=== PATIENT | female | born 1970 | race Caucasian/White ===

== ENCOUNTER → 2017-11-14 11:22 | Outpatient (CLI) | payer BC, SELFPAY ==
[2017-11-14 15:41] LABS: Cholesterol 190 mg/dL (200); Glucose 87 mg/dL (74-106); High Density Lipoprotein 83 mg/dL; Triglycerides 64 mg/dL; Very Low Density Lipoprotein 13 mg/dL (5-40)
== END ==
PROVIDERS: Family Provider Family Medicine; PCP Family Medicine; Visit Provider Family Medicine
DX: E78.5 Hyperlipidemia, unspecified (principal); Z13.1 Encounter for screening for diabetes mellitus
CPT/HCPCS: 36415; 80061; 82947

== ENCOUNTER 2017-12-24 12:13 | Emergency (ER) | payer BC, SELFPAY ==
[2017-12-24 12:14] VITALS: BP 124/80; PULSE 80; RESP 20; TEMP 36.6; O2SAT 100; BMI 22.6
[2017-12-24 12:42] VITALS: BP 120/88; PULSE 67; RESP 15; O2SAT 99
[2017-12-24 13:00] LABS: Bedside Glucose 75 mg/dL (70-110)
[2017-12-24 14:29] VITALS: BP 112/74; PULSE 69; RESP 17; O2SAT 99
--- NOTE | 2017-12-24 14:38 | ED.VISSUMM ---
- ER Visit Summary Date of Service: 12/24/17 Chief Complaint: Palpitations, dizziness and low blood sugar History of Present Illness: The patient is a 47 F who presents because palpitations, dizziness and low blood sugar. She has no significant past medical history. She does have history of anxiety. She denies fever, chills night sweats. She denied double vision, blurred vision or loss of vision. Her definition of lightheadedness is lightheadedness. Worse episode occurred 2 days ago while she was on the commode and passed out. She has had several episodes of near syncopal episodes. Based on her description of nausea, diaphoresis, lightheadedness and tunnel vision suspect these are vasovagal events. She has had several in the past week. She denies black, maroon or bloody stool. She does report nausea without vomiting or diarrhea. She denies any chest pain, palpitations. She does commit up flipping fluttering of her heart. She denies shortness of breath, cough, pleuritic chest pain. She has no history of PE or DVT. She has no risk factors. She denies any abdominal pain or back pain. She denies leg pain, swelling or discoloration. She is not a diabetic. She has not checked her blood sugar when she believes her sugar is low. Physical Examination: Pleasant middle-aged woman in no distress. She does admit to feeling anxious and a history of anxiety her entire life. Vital signs are normal. HEENT exam is unremarkable. Insert cardio pulmonary exam abdomen soft nontender normal bowel sounds. There is no asymmetry, swelling, discoloration, leg vein distention, palpable cords or tenderness along the distribution of the deep venous system. Neuro exam is nonfocal. Test Results: EKG was obtained and reveals a sinus rhythm rate of 70 with normal NE interval, QRS duration, QT interval and axis. Patient was placed on a monitor and there was no ectopy for her 2 hour stay. B GT was obtained and normal, 75 Emergency Department Course and Treatment: Because she complained of low blood sugar her blood sugar was assessed. Because of the palpitations and lightheadedness and EKG was obtained to evaluate for dysrhythmia, findings of preexcitation syndrome etc. And she was placed on a monitor Treatment Plan: Since she is reported several vagal type episodes will refer to cardiology for evaluation for possible table tilt test. Disposition: Discharged home with outpatient cardiology follow-up Impression: 1. Vasovagal syncopal episode 2. Palpitations 3. Anxiety This note was generated with [employer] dictation software. It may contain incorrect words, spelling, and punctuation that were not noted in review of the chart prior to signing ED Disposition - Plan for ED Patient: Disposition: Home or Assisted Living Chief Complaint: Dizziness Instructions: ED Syncope Vasovagal Referrals: Laya Hicks DO [Primary Care Provider] - Frederick Jimenez MD [STAFF PHYSICIAN] - 5-7 Days Additional Instructions: Patient report multiple near syncopal episodes and had a syncopal episode you were referred to Dr. Jimenez for evaluation for possible table tilt test.
[2017-12-24 14:57] VITALS: BP 114/75; PULSE 71; RESP 15; O2SAT 98
== END 2017-12-24 14:58 | disposition home or self-care (01) ==
PROVIDERS: Emergency Provider Emergency Medicine; Family Provider Family Medicine; PCP Family Medicine
DX: R55 Syncope and collapse (principal); R00.2 Palpitations; R42 Dizziness and giddiness; E16.2 Hypoglycemia, unspecified; F41.9 Anxiety disorder, unspecified; Z79.899 Other long term (current) drug therapy
CPT/HCPCS: 82962; 93005; 99283

== ENCOUNTER → 2017-12-27 14:33 | Outpatient (CLI) | payer BC, SELFPAY ==
[2017-12-27 17:23] LABS: Absolute Neutrophil Count 3.7 X10^3/uL (2.0-7.7); Basophil# 0.02 X10^3/uL; Basophil% 0.3 % (0-1); Eosinophil# 0.04 X10^3/uL; Eosinophils% 0.6 % (0-5); Hematocrit 44.8 % (37-47); Hemoglobin 15.1 g/dl (12.0-15.0); Lymphocyte % 33.6 % (19-41); Mean Corp Hgb Conc 33.7 g/gl (32-36); Mean Corpuscular Hgb 30.9 pg (27.0-32.0); Mean Corpuscular Volume 91.6 fL (81-99); Mean Platelet Vol. 9.7 fl (6.2-12.0); Monocyte# 0.37 X10^3/uL; Monocyte% 5.9 % (0-10); Neutrophil # 3.72 X10^3/uL (2.7-7.7); Neutrophil % 59.6 % (47-70); Platelet Count 304 K/mm3 (150-450); RBC Distribution Width CV 13.7 % (11.6-14.6); RBC Distribution Width SD 45.7 fl (35.1-43.9); Red Blood Count 4.89 M/mm3 (4.2-5.4); White Blood Count 6.3 K/mm3 (4.4-11.0)
[2017-12-27 17:28] LABS: POSITIVE COUNT NO; POSITIVE DIFFERENTIAL NO; POSITIVE MORPHOLOGY NO
[2017-12-27 17:45] LABS: Anion Gap 9 (5-15); BUN 6 mg/dL (7-18); Calcium,Total 8.9 mg/dL (8.5-10.1); Chloride 106 mmol/L (98-107); Creatinine, Serum 0.66 mg/dL (0.55-1.02); EST Glomerular Filtration Rate 101 mL/min (>60); Est Glom Filt Rate - Afr Amer 123 mL/min (>60); Glucose 75 mg/dL (74-106); Potassium 4.1 mmol/L (3.5-5.1); Sodium Level 143 mmol/L (136-145); Thyroid Stim Hormone (TSH) 0.69 uIU/mL (0.358-3.74)
== END ==
PROVIDERS: Family Provider Family Medicine; PCP Family Medicine; Visit Provider Internal Medicine Cardiovascular Disease
DX: R55 Syncope and collapse (principal)
CPT/HCPCS: 36415; 80048; 84443; 85025

== ENCOUNTER 2017-12-29 07:48 | Emergency (ER) | payer BC, SELFPAY ==
[2017-12-29 07:50] VITALS: BP 150/91; PULSE 96; RESP 16; TEMP 36.4; O2SAT 100; BMI 22.8
--- NOTE | 2017-12-29 08:36 | ED.VISSUMM ---
- ER Visit Summary Date of Service: 12/29/17 Chief Complaint: [] Feeling hot all over abdominal burning History of Present Illness: The patient is a 47 F [] patient has history of anxiety otherwise she denies a past history she reports she has had intermittent episodes of a sense that she feels hot all over sometimes her abdomen seems to be burning from inside as if there is firing her stomach. She did not have any type of syncope, and she has no cardiopulmonary complaints of any kind other than report she feels hot all over, and she has had this sensation in the past, this occurred this morning she presents for evaluation. She was seen recently emergency department for which she describes as palpitations low blood sugar and vasovagal symptoms, ED evaluation was unremarkable she can follow-up Dr. Jimenez a few days ago cardiology the workup in that office was also unremarkable she was instructed to follow-up with a cardiac echo she does report she had blood test done does not know the results. She has had no vomiting no fever no cough she has no past history specifically she has a history of CO PE DVT hypertension or diabetes takes no medications on daily basis except for Xanax for anxiety she makes she feels her anxiety is well controlled she is able to eat and drink her bowel bladder habits are normal she has no history of hepatobiliary dysfunction ulcer disease she has had no fevers no dysuria no cough no URI symptoms, she has no history of thyroid disorder Physical Examination: [] She is resting comforting the bed her vital signs are all within normal range she is in no distress HEENT exam was negative lungs are clear heart tones are normal the abdomen soft nontender she takes her hand draws a large [place] around the entire abdominal cavity complains that she feels is this area is on fire but the exam is completely unremarkable the backs unremarkable upper lower extremities unremarkable neurologically is awake moving all 4 there is no sinus clubbing or edema she has no signs of psychomotor agitation delirium or delusion her temperature is normal in the sense that she feels hot is improved Test Results: [] Emergency Department Course and Treatment: [] I did explain to her we could undergo ED evaluation with labs EKG etc. she declined all that since she just had that she just wanted me to check the labs that were done THIS week those labs were reviewed were unremarkable, I did not wish to have any other testing done she wants some relief so she was given GI cocktail she will be given a prescription for antacid type occasion like Prilosec, bland diet and otherwise she will miss her family doctor, Dr. Jimenez her other physicians for further management all the above, she agrees with this plan Treatment Plan: [] Disposition: [] Home stable Impression: [] Sense of feeling hot all over, reported sense of abdominal burning This note was generated with [employer] dictation software. It may contain incorrect words, spelling, and punctuation that were not noted in review of the chart prior to signing ED Disposition - Plan for ED Patient: Chief Complaint: Syncope Instructions: ED Abdominal Pain Unkn Cause, ED Palpitations, ED Near Syncope Unkn Prescriptions: Omeprazole [Prilosec] 20 mg PO DAILY #30 cap Referrals: Laya Hicks DO [Primary Care Provider] -
--- NOTE | 2017-12-29 08:40 | ED.DCSUM_ITS ---
- ER Visit Summary Date of Service: 12/29/17 Chief Complaint: [] Feeling hot all over abdominal burning History of Present Illness: The patient is a 47 F [] patient has history of anxiety otherwise she denies a past history she reports she has had intermittent episodes of a sense that she feels hot all over sometimes her abdomen seems to be burning from inside as if there is firing her stomach. She did not have any type of syncope, and she has no cardiopulmonary complaints of any kind other than report she feels hot all over, and she has had this sensation in the past, this occurred this morning she presents for evaluation. She was seen recently emergency department for which she describes as palpitations low blood sugar and vasovagal symptoms, ED evaluation was unremarkable she can follow-up Dr. Jimenez a few days ago cardiology the workup in that office was also unremarkable she was instructed to follow-up with a cardiac echo she does report she had blood test done does not know the results. She has had no vomiting no fever no cough she has no past history specifically she has a history of ID PE DVT hypertension or diabetes takes no medications on daily basis except for Xanax for anxiety she makes she feels her anxiety is well controlled she is able to eat and drink her bowel bladder habits are normal she has no history of hepatobiliary dysfunction ulcer disease she has had no fevers no dysuria no cough no URI symptoms, she has no history of thyroid disorder Physical Examination: [] She is resting comforting the bed her vital signs are all within normal range she is in no distress HEENT exam was negative lungs are clear heart tones are normal the abdomen soft nontender she takes her hand draws a large redding around the entire abdominal cavity complains that she feels is this area is on fire but the exam is completely unremarkable the backs unremarkable upper lower extremities unremarkable neurologically is awake moving all 4 there is no sinus clubbing or edema she has no signs of psychomotor agitation delirium or delusion her temperature is normal in the sense that she feels hot is improved Test Results: [] Emergency Department Course and Treatment: [] I did explain to her we could undergo ED evaluation with labs EKG etc. she declined all that since she just had that she just wanted me to check the labs that were done THIS week those labs were reviewed were unremarkable, I did not wish to have any other testing done she wants some relief so she was given GI cocktail she will be given a prescription for antacid type occasion like Prilosec, bland diet and otherwise she will miss her family doctor, Dr. Jimenez her other physicians for further management all the above, she agrees with this plan Treatment Plan: [] Disposition: [] Home stable Impression: [] Sense of feeling hot all over, reported sense of abdominal burning This note was generated with [employer] dictation software. It may contain incorrect words, spelling, and punctuation that were not noted in review of the chart prior to signing ED Disposition - Plan for ED Patient: Chief Complaint: Syncope Instructions: ED Abdominal Pain Unkn Cause, ED Palpitations, ED Near Syncope Unkn Prescriptions: Omeprazole [Prilosec] 20 mg PO DAILY #30 cap Referrals: Laya Hicks DO [Primary Care Provider] -
--- NOTE | 2017-12-29 08:40 | ED.DEP ---
ED Disposition - Plan for ED Patient: Chief Complaint: Syncope Instructions: ED Palpitations, ED Near Syncope Unkn, ED Abdominal Pain Unkn Cause Prescriptions: Omeprazole [Prilosec] 20 mg PO DAILY #30 cap Referrals: Laya Hicks DO [Primary Care Provider] -
--- NOTE | 2017-12-29 08:42 | ED.DEP ---
ED Disposition - Plan for ED Patient: Chief Complaint: Syncope Instructions: ED Abdominal Pain Unkn Cause, ED Palpitations, ED Near Syncope Unkn Prescriptions: Omeprazole [Prilosec] 20 mg PO DAILY #30 cap Referrals: Laya Hicks DO [Primary Care Provider] -
[2017-12-29] MEDS: Mag Hydrox/Al Hydrox/Simeth 30 ML UDC PO (08:53)
== END 2017-12-29 09:04 | disposition home or self-care (01) ==
LOC: ED 08:48
PROVIDERS: Emergency Provider Emergency Medicine; Family Provider Family Medicine; PCP Family Medicine
DX: R20.8 Other disturbances of skin sensation (principal); R68.89 Other general symptoms and signs; F41.9 Anxiety disorder, unspecified; Z79.899 Other long term (current) drug therapy
CPT/HCPCS: 99283

== ENCOUNTER → 2018-01-02 13:51 | Outpatient (CLI) | payer BC, SELFPAY | PROVIDERS: Family Provider Family Medicine; PCP Family Medicine; Visit Provider Internal Medicine Cardiovascular Disease | DX: R55 Syncope and collapse (principal) | CPT/HCPCS: 93306 ==

== ENCOUNTER → 2018-01-17 10:44 | Outpatient (CLI) | payer BC, SELFPAY | PROVIDERS: Family Provider Family Medicine; PCP Family Medicine; Visit Provider Family Medicine | DX: R10.11 Right upper quadrant pain (principal) | CPT/HCPCS: 76705 ==

== ENCOUNTER 2018-03-24 09:06 | Day surgery (SDC) | payer BC, SELFPAY ==
--- NOTE | 2018-03-24 | COLBX_PTH ---
PATIENT: RACHELL ABAD LOC: EN U#:[id number] AGE/SX: 47/F ROOM: RE03/24/[address]: Dr. Mat Tam MD : 1970 BED: DIS: 03/24/2018 SPEC #: [id number] RECD: 03/24/18 13:51 STATUS: KSENIA KANDI #: [id number] ZAC: 03/24/18 00:[address]: Mat Tam DEPT: SURGICAL PATHOLOGY RECD BY: Roddy Roman ENTERED: 03/24/18 13:52 SP TYPE: COLON BX OTHR DR: Dr. Laya Hicks DO Tissues: A - Duodenum, NOS B - Gastric mucous membrane C - Gastric mucous membrane D - Esophageal mucous membrane Procedures: Surgery Specimen Level IV HEADER OPERATION: EGD ([facility]) PRE-OP DIAGNOSIS: Nausea, epigastric burning, burping TISSUE SUBMITTED: A - Duodenal biopsy, B - Antral biopsy for H. pylori and pathology, C - GE junction biopsy, D - Mid esophageal biopsy MICROSCOPIC DIAGNOSIS A. Duodenum, biopsy: No pathologic change. B. Gastric antrum, biopsy: Mild chronic gastritis. C. Gastroesophageal junction, biopsy: Junctional mucosa with mild chronic inflammation. D. Mid esophagus, biopsy. Fragments of benign squamous mucosa. AM:tye 03/27/18 COMMENT The results of immunohistochemistry for Helicobacter pylori will be reported separately ([id number]). MICROSCOPIC DESCRIPTION Slides are reviewed. GROSS DESCRIPTION A. Received is one container labeled with the patient name and designated duodenal biopsy. The specimen consists of two irregular fragments of light stallings soft tissue that measure 0.4 x 0.2 x 0.1 cm. The specimen is totally submitted in one cassette. B. Received is one container labeled with the patient name and designated antral biopsy. The specimen consists of one irregular fragment of light stalilngs soft tissue that measures 0.3 x 0.3 x 0.1 cm. The specimen is totally submitted in one cassette. C. Received is one container labeled with the patient name and designated GE junction biopsy. The specimen consists of multiple irregular fragments of light stallings soft tissue that in aggregate measure 0.6 x 0.3 x 0.1 cm. The specimen is totally submitted in one cassette. D. Received is one container labeled with the patient name and designated mid esophageal biopsy. The specimen consists of two irregular fragments of light stalligns soft tissue that in aggregate measure 0.6 x 0.3 x 01 cm. The specimen is totally submitted in one cassette. / LINDA:tye 03/24/18 TC: 3 CPT: 60499 x4
--- NOTE | 2018-03-24 | IMM_PTH ---
PATIENT: RACHELL ABAD LOC: EN U#:[id number] AGE/SX: 47/F ROOM: RE03/24/[address]: Dr. Mat Tam MD : 1970 BED: DIS: 03/24/2018 SPEC #: [id number] RECD: 03/27/18 11:59 STATUS: KSENIA KANDI #: [id number] ZAC: 03/24/18 00:[address]: Mat Tam DEPT: IMMUNOHISTOCHEMISTRY RECD BY: Marissa Garza ENTERED: 03/27/18 12:00 SP TYPE: IMMUNO OTHR DR: Dr. Laya Hicks, DO Tissues: Gastric mucous membrane Procedures: H Pylori (initial) PHYSICIAN & INSTITUTION [place] [id number] SPECIMEN INFORMATION: Tissue Source: Antral biopsy Clinical Info: Nausea, epigastric burning, burping Specimen Number: [id number] CPT code: 47565 METHODOLOGY: Deparaffinized sections of prefer/formalin-fixed tissue or PAP/DQ stained slides are incubated with monoclonal/polyclonal antibodies/oligonucleotide probes. Localization is made via biotin free immunoperoxidase method. Appropriate controls are performed and reacted as expected. Results on target cell population are indicated in the following table: RESULTS: ANTIBODY / CLONE RESULT H Pylori (polyclonal) negative These tests were developed and their performance characteristics determined by [facility]. They may not have been cleared or approved by the U.S. Food and Drug Administration. The FDA has determined that such clearance or approval is not necessary. INTERPRETATION: Antral biopsy; Negative for Helicobacter pylori. AM:da 03/28/18
[2018-03-24 09:44] VITALS: BP 111/74; PULSE 89; RESP 14; TEMP 36.4; O2SAT 100; BMI 21.6
[2018-03-24 10:40] VITALS: BP 101/64; BP 111/74; PULSE 93; RESP 15; TEMP 36.6; O2SAT 96
--- NOTE | 2018-03-24 10:43 | OP.ENDO_ITS ---
Patient Name: Ramandeep Pérez Procedure Date: 03/24/2018 10:21 AM Date of : 1970 Age: 47 Procedure: Upper GI endoscopy Indications: Epigastric abdominal pain Providers: Mat Tam MD Referring MD: Mat Tam MD Medicines: See the Anesthesia note for documentation of the administered medications Complications: No immediate complications. Procedure: Pre-Anesthesia Assessment: - Prior to the procedure, a History and Physical was performed, and patient medications and allergies were reviewed. The patient's tolerance of previous anesthesia was also reviewed. The risks and benefits of the procedure and the sedation options and risks were discussed with the patient. All questions were answered, and informed consent was obtained. Prior Anticoagulants: The patient has taken no previous anticoagulant or antiplatelet agents. ASA Grade Assessment: II - A patient with mild systemic disease. After reviewing the risks and benefits, the patient was deemed in satisfactory condition to undergo the procedure. After obtaining informed consent, the endoscope was passed under direct vision. Throughout the procedure, the patient's blood pressure, pulse, and oxygen saturations were monitored continuously. The gastroscope was introduced through the mouth, and advanced to the second part of duodenum. The upper GI endoscopy was accomplished without difficulty. The patient tolerated the procedure well. Scope In: 10:29:06 AM Scope Out: 10:34:21 AM Total Procedure Duration Time 0 hours 5 minutes 15 seconds Findings: LA Grade A (one or more mucosal breaks less than 5 mm, not extending between tops of 2 mucosal folds) esophagitis was found 38 cm from the incisors. Biopsies were taken with a cold forceps for histology. A small hiatal hernia was present. Diffuse mildly erythematous mucosa without bleeding was found in the gastric antrum. Biopsies were taken with a cold forceps for histology. The examined duodenum was normal. Biopsies were taken with a cold forceps for histology. Impression: - LA Grade A reflux esophagitis. Biopsied. - Small hiatal hernia. Mid esophageal biopsies obtained to assess for eosinophyllic esophagitis - Erythematous mucosa in the antrum. Biopsied. - Normal examined duodenum. Biopsied. Recommendation: - Discharge patient to home. - Resume previous diet. - Continue present medications. Procedure Code(s): --- Professional --- 79173, Esophagogastroduodenoscopy, flexible, transoral; with biopsy, single or multiple Diagnosis Code(s): --- Professional --- K21.0, Gastro-esophageal reflux disease with esophagitis K44.9, Diaphragmatic hernia without obstruction or gangrene K31.89, Other diseases of stomach and duodenum R10.13, Epigastric pain CPT copyright 2017 [employer]. All rights reserved. The codes documented in this report are preliminary and upon energy attorney review may be revised to meet current compliance requirements. Mat Tam MD 03/24/2018 10:42:31 AM This report has been signed electronically. Number of Addenda: 0 Note Initiated On: 03/24/2018 10:21 AM
[2018-03-24 10:45] VITALS: BP 111/74; BP 99/67; PULSE 88; RESP 16; O2SAT 100
[2018-03-24 10:50] VITALS: BP 102/73; BP 111/74; PULSE 88; O2SAT 99
[2018-03-24 10:55] VITALS: BP 106/69; BP 111/74; PULSE 77; RESP 16; TEMP 36.6; O2SAT 100
== END 2018-03-24 11:19 | disposition home or self-care (01) ==
LOC: EN 09:07 → AC 09:32
PROVIDERS: Family Provider Family Medicine; PCP Family Medicine; Referring Provider Surgery; Visit Provider Surgery
PROC: 0DJ08ZZ Inspection of Upper Intestinal Tract, Via Natural or Artificial Opening Endoscopic (ICD-10-PCS; CPT 43235; principal; 2018-03-24 09:55)
DX: K21.0 Gastro-esophageal reflux disease with esophagitis (principal); K44.9 Diaphragmatic hernia without obstruction or gangrene; K29.50 Unspecified chronic gastritis without bleeding; R55 Syncope and collapse; E78.00 Pure hypercholesterolemia, unspecified; M54.9 Dorsalgia, unspecified; G89.29 Other chronic pain; G43.909 Migraine, unspecified, not intractable, without status migrainosus; F41.9 Anxiety disorder, unspecified; Z79.899 Other long term (current) drug therapy; Z87.891 Personal history of nicotine dependence
CPT/HCPCS: 43239; 88305; 88342; J7120

== ENCOUNTER → 2019-10-31 12:46 | Outpatient (CLI) | payer BC, SELFPAY ==
--- NOTE | 2019-10-31 12:50 | BI_ITS ---
MAMMOGRAPHY - BILATERAL SCREENING REASON FOR EXAM: Female, 49 years old. Routine annual screening examination. PERTINENT HISTORY: Non-contributory. Prior left stereotactic breast biopsy. TECHNIQUE: Digital bilateral breast grady (3D mammographic acquisition) in the CC and MLO projections. 2-D mediolateral oblique (MLO) and craniocaudad (CC) views of both breasts were obtained. CAD: Full Field Digital Mammography with Computer Added Detection was performed. COMPARISON: Comparison is made with prior EXAMINATION dated July 14, 2015. FINDINGS: Breast Composition: The breasts are heterogeneously dense, which may obscure small masses. There are no dominant masses or suspicious calcifications. A tissue clip marker is seen in the upper slightly lateral aspect of the left breast from prior biopsy. No other significant abnormalities are identified. There has been no significant change since the prior study. BI/SCREEN MAMM (CAD) W/GRADY BILAT IMPRESSION: Stable bilateral screening mammogram. Yearly follow-up mammogram recommended. (A) ASSESSMENT CATEGORY: BIRADS Category 2: Benign. A letter regarding these results will be sent to the patient by the facility within 30 days. Approximately 10% of breast cancers are not detected by mammography. A normal mammogram should not delay biopsy of a clinically suspicious abnormality. [id number] Electronically Signed: Sam Mcdonald, at 9:45 EDT , Service support ,
== END ==
PROVIDERS: PCP Family Medicine; Referring Provider Family Medicine; Visit Provider Family Medicine
DX: Z12.31 Encounter for screening mammogram for malignant neoplasm of breast (principal)
CPT/HCPCS: 77063; 77067

== ENCOUNTER → 2020-03-17 17:41 | Outpatient (CLI) | payer BC, SELFPAY ==
--- NOTE | 2020-03-17 17:46 | CT_ITS ---
STUDY: CT ABDOMEN AND PELVIS WITH CONTRAST REASON FOR EXAM: Female, 49 years old. ABD PAIN,PULSATILE MASS OVER AORTA RADIATION DOSAGE (If Supplied By Facility): CTDIvol = ( 13.25 ) mGy, DLP = ( 627.72 ) mGycm TECHNIQUE: Transaxial images were obtained from the dome of the diaphragm to the symphysis pubis with oral contrast. Oral and amp; IV Readi-CAT and amp; 100mL Isovue-300 was administered. Sagittal and coronal images were reconstructed. Individualized dose optimization techniques were used for this CT. COMPARISON: None. FINDINGS: 26.6 mm pleural-based nodule in the left lower lobe laterally. This most likely represents focal area of scarring. The visualized portions of the heart are within normal limits. Normal liver. Normal gallbladder and extrahepatic biliary system. Normal spleen. Normal pancreas. Normal bilateral adrenal glands. Normal right kidney. Normal left kidney. Normal visualized stomach. Normal small intestine. Normal colon. There is non-visualization of the appendix. Normal abdominal aorta. Normal inferior vena cava. Normal retroperitoneum. Normal urinary bladder. Follicles are seen in both ovaries. A dominant follicle is seen in the left ovary measuring 2.1 cm. The patient is status post hysterectomy. Normal abdominal wall. There are diffuse degenerative changes of the visualized lumbar spine. Levoscoliosis. Status post appendectomy and kristopher fixation of the lumbar spine. CT/Abdomen/Pelvis WITH Contrast IMPRESSION: Status post hysterectomy. Bilateral ovarian follicles. Prior lumbar surgery with persistent degenerative changes as well as levoscoliosis. Electronically Signed: Sam Mcdonald, at 10:25 EST , Service support ,
== END ==
PROVIDERS: PCP Family Medicine; Visit Provider Family Medicine
DX: R10.9 Unspecified abdominal pain (principal)
CPT/HCPCS: 74177; Q9967

== ENCOUNTER 2020-11-21 09:20 | Emergency (ER) | payer BC, SELFPAY ==
[2020-11-21 09:22] VITALS: BP 122/77; PULSE 86; RESP 16; TEMP 36; O2SAT 93; BMI 22.2
--- NOTE | 2020-11-21 09:29 | EKG12_ITS ---
Test Reason : SOB Blood Pressure : / mmHG Vent. Rate : 079 BPM Atrial Rate : 079 BPM P-R Int : 162 ms QRS Dur : 074 ms QT Int : 368 ms P-R-T Axes : 036 024 058 degrees QTc Int : 421 ms Normal sinus rhythm Normal ECG Confirmed by KARIE RODRIGUEZ MD ([id number]), managing editor RODRIGUEZ PATEL ([id number]) on 11/24/2020 1:12:28 PM Referred By: CRISTY Confirmed By:KARIE RODRIGUEZ MD
--- NOTE | 2020-11-21 09:37 | EDS_ITS ---
HPI History of Present Illness Chief Complaint: Palpitations Narrative Narrative: 50-year-old female presenting with multiple complaints. The first of which is nasal congestion and a slight cough that she is had for a week and a half. She was tested for Covid and was negative. She has not had a fever, chills, body aches, change in taste or smell. She states that she does have seasonal allergies but does not take anything because nothing works. Secondly the patient complains of palpitations she states that these come and go. She states that she has had palpitations for most of her adult life. I asked her what was different about them today that got her here and she stated that she feels like sometimes she feels like she is going to pass out. She denies any chest pain or dyspnea. Patient also states that her hands and feet feel cold. Patient is also complaining that she has some dyspepsia which is a chronic issue for her and she has been taking her omeprazole and it does not seem to be working. She is a small area of pain in the left lower quadrant and she states that she has had some constipation and some diarrhea recently. She denies black or bloody stools. [facility] Medical History Acid reflux Anxiety Back problem Dizziness Epigastric pain Nausea Palpitations Vasovagal syncope Home Medications alprazolam 0.5 mg PO BID PRN PRN 09/25/15 [History Last Taken Unknown] oxycodone-acetaminophen 1 ea PO Q6H PRN PRN #30 tab 10/02/15 [Rx Last Taken Unknown] omeprazole 20 mg PO DAILY #30 cap 12/29/17 [Rx Last Taken Unknown] clindamycin phosphate 1 % topical foam 1 applic TOPICAL QHS 02/24/18 [History Last Taken Unknown] sumatriptan succinate 50 mg tablet 50 mg PO .X1 PRN 02/24/18 [History Last Taken Unknown] Allergy/AdvReac Type Severity Reaction Status Date / Time acetaminophen [From Fioricet] AdvReac Nausea Verified 11/21/20 09:21 butalbital [From Fioricet] AdvReac Nausea Verified 11/21/20 09:21 caffeine [From Fioricet] AdvReac Nausea Verified 11/21/20 09:21 bactrim Allergy nauseated Uncoded 11/21/20 09:21 Family History Father Arthritis Diabetes Heart disease Hypertension Kidney disease High cholesterol Mother Diabetes Brother Hypertension High cholesterol Uncle CVA (cerebral vascular accident) Grandmother CVA (cerebral vascular accident) Surgical History History of bilateral salpingectomy History of hysterectomy history ORIF left hip Social History Smoking Status: Never smoker alcohol intake: never substance use type: does not use ROS ROS ED Constitutional Constitutional ED: Denies chills, fever(s), sweats or weight loss Eyes Eyes: Denies blurry vision or diplopia ENT ENT ED: Reports rhinorrhea; Denies sore throat Cardiovascular Cardiovascular: Reports palpitations; Denies chest pain Respiratory/Chest Respiratory/Chest: Reports cough; Denies dyspnea or dyspnea on exertion Gastrointestinal Gastrointestinal: Reports abdominal pain, constipation, diarrhea and other Details: Dyspepsia ; Denies vomiting Genitourinary Genitourinary ED: Denies dysuria or hematuria Musculoskeletal Musculoskeletal: Reports other Details: Cold hands and feet ; Denies myalgias Integumentary Denies abscess or rash Neurologic Neurologic: Denies headache(s) or paresthesias EXAM Physical Exam Const Vital Signs: 11/21/20 09:22 11/21/20 09:31 11/21/20 09:41 Temperature 96.8 F L Temperature Source Temporal Pulse Rate 86 Pulse Rate [Lying] Pulse Rate [Sitting] Pulse Rate [Standing] Respiratory Rate 16 Respiratory Effort Normal Non-Labored Respiratory Pattern Normal Blood Pressure 122/77 H Blood Pressure [Lying] Blood Pressure [Sitting] Blood Pressure [Standing] Blood Pressure Mean 92 Blood Pressure Mean [Lying] Blood Pressure Mean [Sitting] Blood Pressure Mean [Standing] Pulse Ox 93 Oxygen Delivery Method Room Air Room Air 11/21/20 10:04 11/21/20 11:34 Temperature Temperature Source Pulse Rate 74 Pulse Rate [Lying] 75 Pulse Rate [Sitting] 83 Pulse Rate [Standing] 94 Respiratory Rate 16 Respiratory Effort Respiratory Pattern Blood Pressure 118/95 H Blood Pressure [Lying] 116/86 H Blood Pressure [Sitting] 133/87 H Blood Pressure [Standing] 121/92 H Blood Pressure Mean Blood Pressure Mean [Lying] 96 Blood Pressure Mean [Sitting] 102 Blood Pressure Mean [Standing] 101 Pulse Ox 98 Oxygen Delivery Method Positive well nourished General Appearance ED: NAD; Negative for cyanotic or diaphoretic HEENT Reports moist mucous membranes Negative for trauma Eyes PERRL and EOMs intact bilaterally General Eye ED: Negative for pale conjunctiva or scleral icterus Neck no lymphadenopathy and supple Resp normal respiratory effort and clear to auscultation bilaterally Cardio regular rate, regular rhythm and no murmurs GI normal to inspection, nondistended, normoactive bowel sounds GI Narrative: No reproducible abdominal pain Extremity normal to inspection Extremity Narrative: Radial pulses and pedal pulses are 2+ and symmetric bilaterally General Extremety ED: Negative for edema General Extremity: Negative for edema Neuro oriented x3 and CN's II-XII intact bilaterally Sensorium / Orientation: alert Psych mental status grossly normal Skin no rashes or lesions noted and no wounds MDM MDM MDM Narrative Medical decision making narrative: Patient presenting today with multiple complaints including palpitations, some dyspnea, cold hands and feet, mild crampy pain in her abdomen. She had an EKG performed on arrival which is sinus rhythm at 79 bpm and my interpretation there is no ST elevation or depression no dysrhythmia. One-view portable chest x-ray interpreted by myself shows no acute cardiopulmonary process. Troponin is less than 3 and effectively rules out ACS and she is not having any chest pain. Patient is PERC negative. Lab work otherwise is unremarkable. TSH is normal. I do not believe the patient needs any further imaging as I cannot reproduce any abdominal pain on exam and her lab work is normal. Patient counseled on finding and comfortable being discharged home. She'll follow-up outpatient with her PCP. Impression: 1. Palpitations 2. Crampy abdominal pain 3. Dyspnea Lab Data Attestation: I reviewed the patient's lab results. Labs: Laboratory Results - last 24 hr 11/21/20 11/21/20 09:36 09:36 WBC 6.3 RBC 5.12 Hgb 15.3 H Hct 45.7 MCV 89.3 MCH 29.9 MCHC 33.5 RDW Std Deviation 41.2 RDW Coeff of Gabriel 12.5 Plt Count 352 MPV 8.7 Immature Gran % (Auto) 0.200 Neut % (Auto) 69.3 Lymph % (Auto) 22.0 [place] % (Auto) 7.1 Eos % (Auto) 0.8 Baso % (Auto) 0.6 Absolute Neuts (auto) 4.4 Absolute Lymphs (auto) 1.39 Nucleated RBC % 0 Sodium 138 Potassium 4.0 Chloride 103 Carbon Dioxide 26.0 Anion Gap 9 BUN 14 Creatinine 0.95 Estim Creat Clear Calc 68.89 Est GFR (MDRD) Af Amer 80 Est GFR (MDRD) Non-Af 66 BUN/Creatinine Ratio 14.7 Glucose 101 Calcium 9.3 Total Bilirubin 0.30 Direct Bilirubin 0.13 AST 12 L ALT 19 Alkaline Phosphatase 88 Troponin I High Sens < 3.0 L Total Protein 7.7 Albumin 4.3 Globulin 3.4 Lipase 241 TSH 0.78 Radiography Diagnostic Testing: Radiology Impression Chest X-Ray 11/21/20 09:45 IMPRESSION: The lungs are clear. Dextroscoliosis. Electronically Signed: Sam Mcdonald MD at 10:17 EDT , Service support , Discharge Plan Triage Chief Complaint: Palpitations ED Provider: Leo Silva Dx/Rx/DC Orders Instructions: ED Abdominal Pain Unkn Cause Fem, ED Palpitations, ED Allergic Rhinitis Prescriptions: No Action clindamycin phosphate 1 % foam 1 applic TOPICAL QHS RF: 0 alprazolam 0.5 MG tablet 0.5 mg PO BID PRN PRN (Reason: Anxiety) RF: 0 oxycodone-acetaminophen 1 EACH tablet 1 ea PO Q6H PRN PRN (Reason: Pain) Qty: 30 RF: 0 sumatriptan succinate 50 mg tablet 50 mg PO .X1 PRN RF: 0 omeprazole 20 MG capsule 20 mg PO DAILY Qty: 30 RF: 0 Primary Care Provider: Laya Hicks Referrals: Laya Hicks DO [Primary Care Provider] - Disposition Disposition: Home, Self Care Discharge Date/Time: 11/21/20 11:35
--- NOTE | 2020-11-21 09:45 | RAD_ITS ---
STUDY: X-RAY CHEST REASON FOR EXAM: Female, 50 years old. Palpitation TECHNIQUE: Single AP portable view of the chest. COMPARISON: None. FINDINGS: EKG electrodes are seen. The lungs are clear and expanded. There is no demonstrated pleural abnormality. Normal size heart. Normal mediastinum and jaya. Normal visualized pulmonary arteries. Normal visualized aortic arch and descending thoracic aorta. Dextroscoliosis. CARABALLO kristopher fixation of the mid thoracic spine and upper lumbar spine. Normal visualized ribs, clavicles, and shoulders. There is no demonstrated abnormality of the visualized soft tissue structures of the upper abdomen. RAD/Chest 1 View (Portable) IMPRESSION: The lungs are clear. Dextroscoliosis. Electronically Signed: Sam Mcdonald MD at 10:17 EDT , Service support ,
[2020-11-21 09:50] LABS: Absolute Lymphocyte Count 1.39 X10^3/uL (0.83-4.51); Absolute Neutrophil Count 4.4 X10^3/uL (2.0-7.7); Basophil# 0.04 X10^3/uL; Basophil% 0.6 % (0-1); Eosinophil# 0.05 X10^3/uL; Eosinophils% 0.8 % (0-5); Hematocrit 45.7 % (37-47); Hemoglobin 15.3 g/dL (12.0-15.0); Lymphocyte # 1.39 X10^3/ul (0.83-4.51); Mean Corp Hgb Conc 33.5 g/dL (32-36); Mean Corpuscular Hgb 29.9 pg (27.0-32.0); Mean Corpuscular Volume 89.3 fL (81-99); Mean Platelet Vol. 8.7 fl (6.2-12.0); Monocyte# 0.45 X10^3/uL; Monocyte% 7.1 % (0-10); NRBC Flagged by Analyzer 0 % (0-5); Neutrophil # 4.39 X10^3/uL (2.7-7.7); Neutrophil % 69.3 % (47-70); Platelet Count 352 K/mm3 (150-450); RBC Distribution Width CV 12.5 % (11.6-14.6); RBC Distribution Width SD 41.2 fl (35.1-43.9); Red Blood Count 5.12 M/mm3 (4.2-5.4); White Blood Count 6.3 K/mm3 (4.4-11.0)
[2020-11-21 10:04] VITALS: BP 116/86; BP 121/92; BP 133/87; PULSE 75; PULSE 83; PULSE 94
[2020-11-21 10:17] LABS: AST(SGOT) 12 U/L (15-37); Alanine Aminotransfer ALT/SGPT 19 U/L (13-56); Albumin, Serum 4.3 g/dL (3.2-5.0); Alkaline Phosphatase 88 U/L (45-117); Anion Gap 9 (5-15); BUN 14 mg/dL (7-18); BUN/Creat Ratio 14.7 RATIO (10-20); Bilirubin, Direct 0.13 mg/dL (0.00-0.30); Calcium,Total 9.3 mg/dL (8.5-10.1); Chloride 103 mmol/L (98-107); Creatinine, Serum 0.95 mg/dL (0.55-1.02); EST Glomerular Filtration Rate 66 mL/min (>60); Est Glom Filt Rate - Afr Amer 80 mL/min (>60); Estimated Creatinine Clearance 68.89 ml/min; Globulin 3.4 g/dL (2.2-4.2); Glucose 101 mg/dL (74-106); Lipase 241 U/L (73-393); Protein, Total 7.7 g/dL (6.4-8.2); Sodium Level 138 mmol/L (136-145); Thyroid Stim Hormone (TSH) 0.78 uIU/mL (0.358-3.74); Troponin-I HS < 3.0 pg/mL (3.0-53.7)
[2020-11-21 11:34] VITALS: BP 118/95; PULSE 74; RESP 16; O2SAT 98
== END 2020-11-21 11:35 | disposition home or self-care (01) ==
PROVIDERS: Emergency Provider Student in an Organized Health Care Education/Training Program; PCP Family Medicine
DX: R00.2 Palpitations (principal); R10.32 Left lower quadrant pain; R06.00 Dyspnea, unspecified; R05 Cough; R09.81 Nasal congestion; K21.9 Gastro-esophageal reflux disease without esophagitis; F41.9 Anxiety disorder, unspecified; Z79.899 Other long term (current) drug therapy
CPT/HCPCS: 71045; 80048; 80076; 83690; 84443; 84484; 85025; 93005; 99285; A4216

== ENCOUNTER → 2020-11-26 09:52 | Outpatient (CLI) | payer BC, SELFPAY ==
[2020-11-24 08:08] VITALS: BMI 22.2
[2020-11-26 10:54] LABS: Insulin 5.4 mU/L (2.6-37.6)
[2020-11-26 11:02] LABS: ALB/GLOB Ratio 1.3 RATIO (0.9-2.4); AST(SGOT) 17 U/L (15-37); Alanine Aminotransfer ALT/SGPT 20 U/L (13-56); Albumin, Serum 4.2 g/dL (3.2-5.0); Alkaline Phosphatase 80 U/L (45-117); Anion Gap 4 (5-15); BUN 11 mg/dL (7-18); BUN/Creat Ratio 14.7 RATIO (10-20); Calcium,Total 8.6 mg/dL (8.5-10.1); Chloride 104 mmol/L (98-107); Creatinine, Serum 0.75 mg/dL (0.55-1.02); EST Glomerular Filtration Rate 87 mL/min (>60); Est Glom Filt Rate - Afr Amer 106 mL/min (>60); Globulin 3.3 g/dL (2.2-4.2); Glucose 84 mg/dL (74-106); Potassium 4.1 mmol/L (3.5-5.1); Protein, Total 7.5 g/dL (6.4-8.2); Sodium Level 136 mmol/L (136-145)
[2020-11-26 11:19] LABS: Hemoglobin A1c 5.3 % (3.8-5.6)
[2020-12-01 08:07] LABS: Epinephrine, Pl <15 pg/mL (0-62); Norepinephrine, Pl 559 pg/mL (0-874)
[2020-12-01 12:35] LABS: Dopamine, Pl <30 pg/mL (0-48)
== END ==
PROVIDERS: PCP Family Medicine; Referring Provider Family Medicine; Visit Provider Family Medicine
DX: E16.2 Hypoglycemia, unspecified (principal); R23.2 Flushing; I10 Essential (primary) hypertension
CPT/HCPCS: 36415; 80053; 82384; 82533; 83036; 83525

== ENCOUNTER → 2020-11-28 10:19 | Outpatient (CLI) | payer BC, SELFPAY ==
[2020-11-24 08:08] VITALS: BMI 22.2
[2020-12-02 20:09] LABS: Dopamine, UR 65 ug/L (Undefined); Epinephrine, 24Ur 6 ug/24 hr (0-20); Epinephrine, Ur 2 ug/L (Undefined); Metanephrine, Ur 33 ug/L (Undefined); Norepinephrine, 24Ur 31 ug/24 hr (0-135); Norepinephrine, Ur 10 ug/L (Undefined); Normetanephrines, 24Ur 152 ug/24 hr (131-612); Normetanephrines, Ur 49 ug/L (Undefined)
[2020-12-02 20:47] LABS: Dopamine, 24Ur 202 ug/24 hr (0-510); Metanephrines, 24Ur 102 ug/24 hr (36-209)
== END ==
PROVIDERS: PCP Family Medicine; Referring Provider Family Medicine; Visit Provider Family Medicine
DX: E16.2 Hypoglycemia, unspecified (principal); R23.2 Flushing; I10 Essential (primary) hypertension
CPT/HCPCS: 36415; 81050; 82384; 83835

== ENCOUNTER 2020-12-09 05:44 | Day surgery (SDC) | payer BC, SELFPAY ==
[2020-11-24 08:08] VITALS: BMI 22.2
[2020-12-09] VITALS (7 sets, daily range): BP systolic 101–108; BP diastolic 68–85; PULSE 60–78; RESP 16; TEMP 36.1–36.5; O2SAT 100; BMI 22.4
--- NOTE | 2020-12-09 05:54 | PCM.HP.BLA ---
History and Physical Date of Admission: 12/09/20 ntake Visit Reasons: CSCOPE Chief Complaint: c-scope Critical Care Clinical Nurse Specialist Required: No Is patient in pain?: Yes (abdomen/stomach) Allergies acetaminophen [From Fioricet] Adverse Reaction (Verified 11/24/20 08:07) Nausea butalbital [From Fioricet] Adverse Reaction (Verified 11/24/20 08:07) Nausea caffeine [From Fioricet] Adverse Reaction (Verified 11/24/20 08:07) Nausea bactrim Allergy (Uncoded 11/24/20 08:07) nauseated Medications alprazolam 0.5 mg PO BID PRN PRN 09/25/15 [History Confirmed 11/24/20] oxycodone-acetaminophen 1 ea PO Q6H PRN PRN #30 tab 10/02/15 [Rx Confirmed 11/24/20] clindamycin phosphate 1 % topical foam 1 applic TOPICAL QHS 02/24/18 [History Confirmed 11/24/20] sumatriptan succinate 50 mg tablet 50 mg PO .X1 PRN 02/24/18 [History Confirmed 11/24/20] pantoprazole 40 mg tablet,delayed release 40 mg PO DAILY 11/24/20 [History Confirmed 11/24/20] PFSH Medical History Acid reflux Anxiety Back problem Dizziness Epigastric pain Nausea Palpitations Vasovagal syncope Surgical History History of bilateral salpingectomy History of hysterectomy history ORIF left hip Family History Father Arthritis Diabetes Heart disease Hypertension Kidney disease High cholesterol Mother Diabetes Brother Hypertension High cholesterol Uncle CVA (cerebral vascular accident) Grandmother CVA (cerebral vascular accident) Social History (Updated 11/24/20 @ 08:06 by Noemy Hopkins) Smoking Status: Never smoker alcohol intake: current alcohol intake frequency: holidays/special occasions only substance use type: does not use HPI HPI HPI: RACHELL ABAD, is a 50 F who presents to the office today for surgical consultation regarding abdominal discomfort, epigastric pain, feeling as if she is almost passing out, need for screening colonoscopy. The patient was referred by Dr. Laya Hicks and a written copy my surgical consult recommendations will return to her. The patient does state that she has had a remote colonoscopy in the very early . Not completely sure whether she had polyps at that time. She can have intermittent diarrhea. She can have some symptomatic uncomfortable hemorrhoids. I previously assisted her with a number endoscopy March 24, 2018. She had some mild gastritis at that time. She had some mild inflammation the GE junction. H. pylori was negative. She is currently on omeprazole therapy and yet despite that was having epigastric pain. Apparently her friend allowed her to use pantoprazole and that is helping to a slightly better degree. Additional evaluation for abdominal pain was performed March 17, 2020 at [facility] abdominal pelvic CT scan with contrast. There is evidence of a previous hysterectomy and bilateral ovarian follicles and evidence of previous lumbar surgery. She has not had any unexpected weight loss. No fever chills or sweats. ROS General General: Yes fatigue; No weight change, appetite, colon cancer, breast cancer or weakness HEENT HEENT: No difficulty swallowing, eye injury, eye surgery, swollen glands or hoarseness Endo Endocrine: No thyroid disease, diabetes mellitus, thyroid cancer, Hair loss, heat intolerance or cold intolerance Skin Skin: No rash or changing moles Breast Breast: No left breast lump, right breast lump, nipple discharge, breast pain, abnormal mammogram, abnormal US or breast enlargement Musc Musculoskeletal: Yes back problems; No arthritis, rheumatoid arthritis, gout or joint pain Cardio Cardiovascular: No murmur, pacemaker, heart disease, atrial fibrillation, high blood pressure, heart attack, heart stent, palpitations, shortness of breat with exertion or chest pain Psych Psychiatric: Yes anxiety; No depression or hearing voices Resp Respiratory: No shortness of breath, No sleep apnea, No cough, No COPD, No asthma, No emphysema and No wheezing Gastro Gastrointestinal: Yes abdominal pain, Yes nausea or vomiting, No diarrhea, Yes constipation, No blood in stool, Yes acid reflux, Yes hemorrhoids, No ulcers, No gallbladder problem and No black,tarry stools Royer Hematologic: No blood thinners, No blood disorders, No bleeding, No anemia and No blood clots Neuro Neurologic: No system reviewed and no additional complaints, except as documented, No as per HPI, No abnormal gait, No abnormal hearing, No abnormal movements, No abnormal speech, No behavioral changes, No burning sensations, No confusion, No convulsions, No disequilibrium, No dizziness, No localized weakness, No frequent falls, No headache(s), No lack of coordination, No loss of vision, No memory loss, No numbness, No other visual disturbances, No radicular pain, No restless legs, No sensory deficit, No syncope, No tingling, No tremor(s), No weakness and No other Exam Const General: cooperative, healthy appearing, comfortable and no acute distress Nutritional Appearance: average body habitus Orientation: alert and awake [facility] Head: normal to inspection Eyes General: appearance normal, both eyes and all related structures Neck Neck: normal visual inspection Resp Effort & Inspection: normal respiratory effort Auscultation: clear to auscultation bilaterally Cardio Rate: regular rate Rhythm: regular rhythm GI Palpation: soft and no hepatosplenomegaly Auscultation: normal bowel sounds Musc Cervical Spine: normal cervical lordosis Skin General: no rashes or lesions noted Neuro Cognition: normal cognition Extrem General: no calf tenderness Psych Appearance: grossly normal COVID (Procedure Consent) Procedure Criteria Procedure Criteria: Yes Elective The surgeon/proceduralist and patient have discussed in detail the risk of exposure to and/or potential harm posed by the COVID-19 virus with having a surgery/procedure at this time versus the risk of delaying the surgery/procedure. It is not possible to know either the risk of delaying the surgery or procedure or chance of getting an infection with perfect accuracy, but a joint decision was made between the patient and the surgeon/proceduralist to proceed at this time with the scheduled surgery/procedure as indicated on the consent form. Assessment and Plan Assessment and Plan (1) Epigastric pain: Status: Acute (2) Screening for intestinal cancer: Status: Acute Plan Details Additional Comments: I believe it is reasonable to offer the patient a combined esophagogastroduodenoscopy with possible biopsy. Very careful inspection for potential source of epigastric pain. Looking for active peptic ulcer disease or reflux disease or even eosinophilic esophagitis. I then additionally propose a colonoscopy with possible biopsy or polypectomy as indicated. Consideration for possible random colonic biopsies. She has had an opportunity to ask and have questions answered. I appreciate the opportunity of assisting with her surgical care. Regarding her episode of nearly passing out I have suggested to her that its not completely likely that I will find the etiology to that on endoscopy exam. We will try to assist her primary care physician in her evaluation. I appreciate the opportunity of assisting with her surgical care Copy: Dr. Laya Tam M.D., F.A.C.S. Coding Level of Care Code 85644 Diagnoses Epigastric pain R10.13 Screening for intestinal cancer Z12.10 I have re-examined the patient. There are no clinical changes since date of exam.
[2020-12-09] MEDS: Lactated Ringers 1,000 ML 100 ML IV (06:19)
--- NOTE | 2020-12-09 06:30 | IMM_PTH ---
PATIENT: RACHELL ABAD LOC: EN U#:[id number] AGE/SX: 50/F ROOM: RE12/09/[address]: Dr. Mat Tam MD : 1970 BED: DIS: 12/09/2020 SPEC #: [id number] RECD: 12/09/20 11:34 STATUS: KSENIA REVijay #: [id number] ZAC: 12/09/20 06:[address]: Mat Tam DEPT: IMMUNOHISTOCHEMISTRY RECD BY: Ivelisse Mehta ENTERED: 12/09/20 11:35 SP TYPE: IMMUNO OTHR DR: Dr. Laya Hicks, DO Tissues: A - Stomach, NOS Procedures: H Pylori (initial) PHYSICIAN & INSTITUTION [place] [address] SPECIMEN INFORMATION: Tissue Source: A ? Antrum biopsy Clinical Info: Epigastric pain, screening for intestinal cancer Specimen Number: [id number] CPT code: 37079 METHODOLOGY: Deparaffinized sections of prefer/formalin-fixed tissue or PAP/DQ stained slides are incubated with monoclonal/polyclonal antibodies/oligonucleotide probes. Localization is made via biotin free immunoperoxidase method. Appropriate controls are performed and reacted as expected. Results on target cell population are indicated in the following table: RESULTS: ANTIBODY / CLONE RESULT Block A H Pylori (polyclonal) negative These tests were developed and their performance characteristics determined by [facility]. They may not have been cleared or approved by the U.S. Food and Drug Administration. The FDA has determined that such clearance or approval is not necessary. INTERPRETATION: A. Antrum biopsy: Negative for Helicobacter pylori organisms. LINDA:sacha 12/10/2020
--- NOTE | 2020-12-09 06:30 | EGD_PTH ---
PATIENT: RACHELL ABAD LOC: EN U#:[id number] AGE/SX: 50/F ROOM: RE12/09/[address]: Dr. Mat Tam MD : 1970 BED: DIS: 12/09/2020 SPEC #: [id number] RECD: 12/09/20 10:40 STATUS: KSENIA CHAU #: [id number] ZAC: 12/09/20 06:[address]: Mat Tam DEPT: SURGICAL PATHOLOGY RECD BY: Martine Anderson ENTERED: 12/09/20 11:38 SP TYPE: EGD BIOPSY OT DR: Dr. Laya Hicks, DO Tissues: A - Gastric mucous membrane B - Esophagus, NOS C - Esophagus, NOS D - Sigmoid colon biopsy Procedures: Surgery Specimen Level IV HEADER OPERATION: [place] [place] DIAGNOSIS: Epigastric pain; screening for intestinal cancer TISSUE SUBMITTED: A ? Antrum biopsy for H. pylori and path, B ? Distal esophagus biopsy, C ? Mid esophagus biopsy, D ? Biopsy of proximal sigmoid polyp MICROSCOPIC DIAGNOSIS A. Antrum, biopsy: Minimal chronic gastritis. See microscopic description and comment. B. Distal esophagus, biopsy: A fragment of squamous epithelium with mild congestion. C. Mid esophagus, biopsy: A fragment of squamous epithelium, no pathologic diagnosis. A fragment of benign smooth muscle bundle, consistent with muscularis mucosa. D. Proximal sigmoid polyp, biopsy: Tubular adenoma. SJ:sacha 12/10/2020 COMMENT A. The results of immunohistochemistry for Helicobacter pylori will be reported separately ([id number]). Case has been reviewed in consultation with Dr. Lincoln who concurs with the above diagnosis. IDC:AM MICROSCOPIC DESCRIPTION Slides are reviewed. A. The specimen shows fragments of gastric mucosa with chronic inflammatory cell infiltrates in the lamina propria consisting of lymphocytes and plasma cells, consistent with minimal chronic gastritis. GROSS DESCRIPTION A - Received in fixative is one container labeled with the patient's name and designated antrum biopsy. The specimen consists of one irregular fragment of light stallings soft tissue that measures 0.3 x 0.3 x 0.1 cm. The specimen is totally submitted in one cassette. B - Received in fixative is one container labeled with the patient's name and designated distal esophagus biopsy. The specimen consists of one irregular fragment of light stallings soft tissue that measures 0.3 x 0.3 x 0.1 cm. The specimen is totally submitted in one cassette. C - Received in fixative is one container labeled with the patient's name and designated mid esophagus biopsy. The specimen consists of one irregular fragment of light stallings soft tissue that measures 0.4 x 0.3 x 0.1 cm. The specimen is totally submitted in one cassette. D - Received in fixative is one container labeled with the patient's name and designated biopsy of proximal sigmoid polyp. The specimen consists of one irregular fragment of light stallings soft tissue that measures 0.4 x 0.3 x 0.1 cm. The specimen is totally submitted in one cassette. / SJ:rg 12/09/20 TC:3 CPT: 88264 x4
--- NOTE | 2020-12-09 07:00 | OP.EGD_ITS ---
Patient Name: Ramandeep Pérez Procedure Date: 12/09/2020 6:07 AM Date of : 1970 Age: 50 Procedure: Upper GI endoscopy Indications: Epigastric abdominal pain Providers: Mat Tam MD Referring MD: Mat Tam MD Medicines: See the Anesthesia note for documentation of the administered medications Complications: No immediate complications. Procedure: Pre-Anesthesia Assessment: - Prior to the procedure, a History and Physical was performed, and patient medications and allergies were reviewed. The patient's tolerance of previous anesthesia was also reviewed. The risks and benefits of the procedure and the sedation options and risks were discussed with the patient. All questions were answered, and informed consent was obtained. Prior Anticoagulants: The patient has taken no previous anticoagulant or antiplatelet agents. ASA Grade Assessment: II - A patient with mild systemic disease. After reviewing the risks and benefits, the patient was deemed in satisfactory condition to undergo the procedure. After obtaining informed consent, the endoscope was passed under direct vision. Throughout the procedure, the patient's blood pressure, pulse, and oxygen saturations were monitored continuously. The gastroscope was introduced through the mouth, and advanced to the second part of duodenum. The upper GI endoscopy was accomplished without difficulty. The patient tolerated the procedure well. Scope In: 6:33:09 AM Scope Out: 6:37:44 AM Total Procedure Duration Time 0 hours 4 minutes 35 seconds Findings: The middle third of the esophagus was normal. Biopsies were taken with a cold forceps for histology. The distal esophagus was normal. Biopsies were taken with a cold forceps for histology. The Z-line was regular and was found 39 cm from the incisors. The entire examined stomach was normal. Biopsies were taken with a cold forceps for histology. The examined duodenum was normal. Impression: - Normal middle third of esophagus. Biopsied. - Normal distal esophagus. Biopsied. - Z-line regular, 39 cm from the incisors. - Normal stomach. Biopsied. - Normal examined duodenum. Recommendation: - Discharge patient to home. - Resume previous diet. - Continue present medications. - Telephone Liver clinic for pathology results in 1 week. No acute findings. At this point recommendations would be maintained on medical treatment as needed. Procedure Code(s): --- Professional --- 34120, Esophagogastroduodenoscopy, flexible, transoral; with biopsy, single or multiple Diagnosis Code(s): --- Professional --- R10.13, Epigastric pain CPT copyright 2017 [employer]. All rights reserved. The codes documented in this report are preliminary and upon business solutions director review may be revised to meet current compliance requirements. Mat Tam MD 12/09/2020 6:59:58 AM This report has been signed electronically. Number of Addenda: 0 Note Initiated On: 12/09/2020 6:07 AM
--- NOTE | 2020-12-09 07:01 | OP.CCLET_ITS ---
12/09/2020 Laya Hicks [address] [facility] [address] Re : Upper GI endoscopy procedure for Ramandeep Westz Dear Dr. Hicks This procedure was performed on Wednesday, December 09, 2020. My impressions and recommendations are as follows: Impressions : - Normal middle third of esophagus. Biopsied. - Normal distal esophagus. Biopsied. - Z-line regular, 39 cm from the incisors. - Normal stomach. Biopsied. - Normal examined duodenum. Recommendations : - Discharge patient to home. - Resume previous diet. - Continue present medications. - Telephone Liver clinic for pathology results in 1 week. No acute findings. At this point recommendations would be maintained on medical treatment as needed. My findings are described in the full procedure note, which is enclosed. If I can be of further assistance, please feel free to contact me at Doctor phone number(s): Work: . Sincerely, Mat Tam MD 12/09/2020 6:59:58 AM This report has been signed electronically.
--- NOTE | 2020-12-09 07:04 | OP.COLON_ITS ---
Patient Name: Ramandeep Pérez Procedure Date: 12/09/2020 6:38 AM Date of : 1970 Age: 50 Procedure: Colonoscopy Indications: Screening for colorectal malignant neoplasm Providers: Mat Tam MD Referring MD: Mat Tam MD Medicines: See the Anesthesia note for documentation of the administered medications Patient Profile: Last Colonoscopy: none. The patient's first colonoscopy is today. Complications: No immediate complications. Procedure: Pre-Anesthesia Assessment: - Prior to the procedure, a History and Physical was performed, and patient medications and allergies were reviewed. The patient's tolerance of previous anesthesia was also reviewed. The risks and benefits of the procedure and the sedation options and risks were discussed with the patient. All questions were answered, and informed consent was obtained. Prior Anticoagulants: The patient has taken no previous anticoagulant or antiplatelet agents. ASA Grade Assessment: II - A patient with mild systemic disease. After reviewing the risks and benefits, the patient was deemed in satisfactory condition to undergo the procedure. After I obtained informed consent, the scope was passed under direct vision. Throughout the procedure, the patient's blood pressure, pulse, and oxygen saturations were monitored continuously. The colonoscope was introduced through the anus and advanced to the cecum, identified by appendiceal orifice and ileocecal valve. The colonoscopy was performed without difficulty. The patient tolerated the procedure well. The quality of the bowel preparation was excellent. The ileocecal valve and the appendiceal orifice were photographed. Scope In: 6:40:27 AM Scope Withdrawal Time 0 hours 8 minutes 8 seconds Scope Out: 6:54:40 AM Total Procedure Duration Time 0 hours 14 minutes 13 seconds Findings: Hemorrhoids were found on perianal exam. A 4 mm polyp was found in the proximal sigmoid colon. The polyp was sessile. The polyp was removed with a cold biopsy forceps. Resection and retrieval were complete. Multiple diverticula were found in the sigmoid colon. The left colon was moderately tortuous. Impression: - Hemorrhoids found on perianal exam. - One 4 mm polyp in the proximal sigmoid colon, removed with a cold biopsy forceps. Resected and retrieved. - Diverticulosis in the sigmoid colon. - Tortuous colon. Recommendation: - Discharge patient to home. - Resume previous diet. - Continue present medications. - Repeat colonoscopy in 5 years for surveillance based on pathology results. - Telephone my office for pathology results in 1 week. Procedure Code(s): --- Professional --- 04731, Colonoscopy, flexible; with biopsy, single or multiple Diagnosis Code(s): --- Professional --- Z12.11, Encounter for screening for malignant neoplasm of colon K64.9, Unspecified hemorrhoids D12.5, Benign neoplasm of sigmoid colon K57.30, Diverticulosis of large intestine without perforation or abscess without bleeding Q43.8, Other specified congenital malformations of intestine CPT copyright 2017 [employer]. All rights reserved. The codes documented in this report are preliminary and upon corner cutter review may be revised to meet current compliance requirements. Mat Tam MD 12/09/2020 7:03:54 AM This report has been signed electronically. Number of Addenda: 0 Note Initiated On: 12/09/2020 6:38 AM
--- NOTE | 2020-12-09 07:05 | OP.CCLET_ITS ---
12/09/2020 Laya Hicks [address] [place] [address] Re : Colonoscopy procedure for Ramandeep Westz Dear Dr. Hicks This procedure was performed on Wednesday, December 09, 2020. My impressions and recommendations are as follows: Impressions : - Hemorrhoids found on perianal exam. - One 4 mm polyp in the proximal sigmoid colon, removed with a cold biopsy forceps. Resected and retrieved. - Diverticulosis in the sigmoid colon. - Tortuous colon. Recommendations : - Discharge patient to home. - Resume previous diet. - Continue present medications. - Repeat colonoscopy in 5 years for surveillance based on pathology results. - Telephone my office for pathology results in 1 week. My findings are described in the full procedure note, which is enclosed. If I can be of further assistance, please feel free to contact me at Doctor phone number(s): Work: . Sincerely, Mat Tam MD 12/09/2020 7:03:54 AM This report has been signed electronically.
== END 2020-12-09 07:43 ==
LOC: EN 05:44 → AC 05:44
PROVIDERS: PCP Family Medicine; Referring Provider Surgery; Visit Provider Surgery
PROC: 0DJD8ZZ Inspection of Lower Intestinal Tract, Via Natural or Artificial Opening Endoscopic (ICD-10-PCS; CPT 45378; principal; 2020-12-09 06:25)
DX: Z12.11 Encounter for screening for malignant neoplasm of colon (principal); K57.30 Diverticulosis of large intestine without perforation or abscess without bleeding; D12.5 Benign neoplasm of sigmoid colon; K29.50 Unspecified chronic gastritis without bleeding; Q43.8 Other specified congenital malformations of intestine; K64.9 Unspecified hemorrhoids; Z20.822 Contact with and (suspected) exposure to COVID-19; K21.9 Gastro-esophageal reflux disease without esophagitis; F41.9 Anxiety disorder, unspecified; Z79.899 Other long term (current) drug therapy; Z87.19 Personal history of other diseases of the digestive system; Z90.710 Acquired absence of both cervix and uterus
CPT/HCPCS: 43239; 45380; 87426; 88305; 88342; C9803; J7120; J2405

== ENCOUNTER → 2021-02-20 08:50 | Outpatient (CLI) | payer BC, SELFPAY | PROVIDERS: PCP Family Medicine; Referring Provider Family Medicine; Visit Provider Family Medicine | DX: R00.2 Palpitations (principal); R00.0 Tachycardia, unspecified | CPT/HCPCS: 93225; 93226 ==

== ENCOUNTER → 2021-03-12 15:39 | Outpatient (CLI) | payer BC, SELFPAY | PROVIDERS: PCP Family Medicine; Visit Provider Otolaryngology Otolaryngology/Facial Plastic Surgery | DX: J32.9 Chronic sinusitis, unspecified (principal) | CPT/HCPCS: 87070; 87205 ==

== ENCOUNTER → 2021-03-17 08:09 | Outpatient (CLI) | payer BC, SELFPAY ==
--- NOTE | 2021-03-17 08:12 | RAD_ITS ---
STUDY: AIR CONTRAST UPPER GI SERIES and esophagram. REASON FOR EXAM: Female, 50 years old. R10.13 - Epigastric pain FLUOROSCOPY TIME (if supplied): (65 seconds) minutes/seconds. 16 images were obtained. TECHNIQUE: SINGLE CONTRAST AND AIR CONTRAST FLUOROSCOPIC IMAGES. COMPARISON: None. FINDINGS: The cervical esophagus demonstrates normal motility without aspiration. There is no stricture or extrinsic mass effect. No intraluminal polypoid mass is identified. The thoracic esophagus distends well without stricture or mucosal fold thickening. No mucosal ulcerations are identified. There is no extrinsic mass effect. There are no diverticula. No hiatal hernia or gastroesophageal reflux was identified. The patient ingested a 12 mm tablet of barium without any difficulty. The stomach distends well without mucosal fold thickening or mucosal ulceration. There is no intraluminal mass. The duodenal bulb is freely distensible without deformity or ulceration. The duodenal sweep is normal in position and caliber. RAD/Upper GI w/BA Swallow IMPRESSION: Normal air-contrast upper GI series. Electronically Signed: Sam Mcdonald MD at 10:25 EDT , Service support ,
== END ==
PROVIDERS: PCP Family Medicine; Referring Provider Surgery; Visit Provider Surgery
DX: K21.9 Gastro-esophageal reflux disease without esophagitis (principal); R10.13 Epigastric pain
CPT/HCPCS: 74246

== ENCOUNTER → 2021-03-20 09:54 | Outpatient (CLI) | payer BC, SELFPAY ==
--- NOTE | 2021-03-20 09:59 | NM_ITS ---
CLINICAL: 50-year-old female with reported history of chronic nausea. RADIONUCLIDE HEPATOBILIARY SCINTIGRAPHY COMPARISON: CT of the abdomen-pelvis report 03/17/2020 FINDINGS: Following the intravenous administration of 5.5 mCi of 99m Tc Mebrofenin, hepatobiliary images reveal: 1. Relatively prompt and homogeneous radiopharmaceutical concentration is noted by a normal sized liver. No parenchymal defects are identified. 2. Gallbladder activity is identified at 15 minutes post radiopharmaceutical administration. 3. Small intestinal tract is observed at 30 minutes following tracer injection. 4. Washout of the radiopharmaceutical by the hepatic parenchyma appears qualitatively normal. Cholecystokinin (0.02 ug/kg) was administered intravenously over a 30-minute period. The post CCK gallbladder ejection fraction calculated at 22 minutes following Cholecystokinin administration was noted to be 76.0 % (normal greater than 35%). During 30 minutes of post CCK imaging, there is no scintigraphic evidence of reflux of the radiotracer into the common hepatic duct or refilling of the gallbladder. There is scintigraphic evidence of post CCK duodenal gastric reflux. GA/Hepatobilliary Img w/Pharm Int IMPRESSION: 1. A gallbladder ejection fraction calculated to be greater than 35% following the administration of Cholecystokinin makes the probability of functional hepatobiliary disease (gallbladder and/or sphincter of Oddi dyskinesia) and/or organic hepatobiliary disease (chronic acalculous cholecystitis and/or cystic duct syndrome) to be low. (Tisha High et al, Journal of Nuclear Medicine 32:1695, 1990). 2. There is scintigraphic evidence of post CCK duodenal-gastric reflux as defined above. (Fausto et al, Nucl Med Vivien Heather Press pg. 35, 1980). Electronically Signed: Stanford Colvin DO at 9:05 EDT Tel , Service support ,
--- NOTE | 2021-03-20 10:11 | CT_ITS ---
STUDY: CT MAXILLOFACIAL SINUSES REASON FOR EXAM: Female, 50 years old. HEADACHE/MIGRAINE RADIATION DOSAGE (If Supplied By Facility): CTDIvol = ( 29.38 ) mGy, DLP = ( 496.03 ) mGycm TECHNIQUE: The patient was scanned in a multi detector CT scanner. High resolution axial imaging was performed without the administration of intravenous contrast material. Sagittal and coronal images were reconstructed. Individualized dose optimization techniques were used for this CT. COMPARISON: None. FINDINGS: FRONTAL SINUSES: Normal aeration, without mucosal inflammatory disease. ETHMOIDAL SINUSES: Normal aeration, without mucosal inflammatory disease. MAXILLARY SINUSES: Normal aeration, without mucosal inflammatory disease. SPHENOIDAL SINUSES: Normal aeration, without mucosal inflammatory disease. There is patency of the bilateral maxillary infundibuli with normal uncinate processes, ethmoid bullae, and hiatus semilunaris. Normal bilateral middle turbinates. Normal bilateral inferior turbinates. Normal midline nasal septum. There is patency of the bilateral nasal airways. The visualized osseous structures are normal. The visualized bilateral orbital contents are normal. CT/Sinus/Facial Bone IMPRESSION: Normal CT examination of the maxillofacial sinuses. Electronically Signed: Tal Brown MD at 12:50 EDT , Service support ,
== END ==
PROVIDERS: PCP Family Medicine; Referring Provider Surgery; Visit Provider Surgery
DX: J32.9 Chronic sinusitis, unspecified (principal); R11.0 Nausea; G43.909 Migraine, unspecified, not intractable, without status migrainosus
CPT/HCPCS: 70486; 78227; A9537; J2805

== ENCOUNTER 2021-04-27 09:36 | Emergency (ER) | payer BC, SELFPAY ==
[2021-04-27 09:37] VITALS: BP 163/112; PULSE 72; RESP 18; TEMP 35.6; O2SAT 100
[2021-04-27 11:05] VITALS: RESP 14
--- NOTE | 2021-04-27 11:22 | CT_ITS ---
STUDY: CT CERVICAL SPINE WITHOUT CONTRAST REASON FOR EXAM: Female, 50 years old. Injury/Pain RADIATION DOSAGE (If Supplied By Facility): CTDIvol = ( 11.83 ) mGy, DLP = ( 244.53 ) mGycm TECHNIQUE: High resolution transaxial imaging was performed without contrast material. Sagittal and coronal images were reconstructed. Individualized dose optimization techniques were used for this CT. COMPARISON: None FINDINGS: Normal craniovertebral junction. Normal anterior atlantoaxial articulation. Normal odontoid process. Normal cervical lordosis. Normal vertebral bodies and posterior osseous elements. C2-3: Normal endplates. Normal disc height and morphology. Normal central canal and intervertebral neuroforamina. C3-4: Normal endplates. Normal disc height and morphology. Normal central canal and intervertebral neuroforamina. C4-5: Marked degree of disc space narrowing with subchondral sclerosis. Anterior and posterior spondylosis. Uncovertebral arthrosis. Mild central canal stenosis. Moderate degree of bilateral neural foraminal stenosis worse on the right side. C5-6: Marked degree of disc space narrowing and disc degeneration. Uncovertebral arthrosis. Spondylosis. Moderate degree of bilateral neural foraminal stenosis. C6-7: Marked degree of disc space narrowing. Spondylosis. Moderate degree of the left neural foraminal stenosis. C7-T1: Normal endplates. Normal disc height and morphology. Normal central canal and intervertebral neuroforamina. Normal visualized soft tissue structures. CT/Spine Cervical without Contras IMPRESSION: Multilevel degenerative changes, as described above. Electronically Signed: Sam Mcdonald MD at 12:05 EST , Service support ,
--- NOTE | 2021-04-27 13:05 | EDS_ITS ---
HPI History of Present Illness Chief Complaint: Other, Pain/Inj Informant: patient Onset/Context/Timing Onset: Month(s) Context: Gradual Onset Timing: Continuous Quality: Aching, burning Location: Cervical spine and paraspinal muscles Worsened by: Movement Relieved by: Nothing Narrative Narrative: Patient presents with neck pain that has been getting worse over the past few months. Patient states she has been evaluated for this by her primary care physician. Patient describes her pain as aching and burning. Patient states pain is over the lower cervical spine and upper thoracic paraspinal muscles. Patient states her pain is worse with movement. Patient admits to some tingling in her upper arms bilaterally. Patient denies any weakness. Patient denies any trauma or injury. [facility] Medical History Acid reflux Anxiety Back problem Cardiology follow-up encounter Dizziness Easy bruising Epigastric pain Gastric reflux History of echocardiogram History of hiatal hernia History of palpitations Migraine headache Nausea Non-smoker Palpitations Vasovagal syncope Wears contact lenses Home Medications alprazolam 1 mg PO QHS 09/25/15 [History Last Taken Unknown] oxycodone-acetaminophen 1 ea PO Q6H PRN PRN #30 tab 10/02/15 [Rx Last Taken Unknown] clindamycin phosphate 1 % topical foam 1 applic TOPICAL QHS PRN 02/24/18 [History Last Taken Unknown] sumatriptan succinate 50 mg tablet 50 mg PO .X1 PRN 02/24/18 [History Last Taken Unknown] fexofenadine [Kelli Allergy] 60 mg PO QWEEK 12/08/20 [History Last Taken Unknown] levocetirizine [Xyzal] 5 mg PO TID 12/08/20 [History Last Taken Unknown] omeprazole 20 mg PO BID 12/08/20 [History Last Taken Unknown] famotidine 04/27/21 [History Last Taken Unknown] oxycodone-acetaminophen 1 tab PO Q6H PRN PRN 3 Days #12 tablet 04/27/21 [Rx Last Taken Unknown] prednisone 60 mg PO DAILY #15 tablet 04/27/21 [Rx Last Taken Unknown] Allergy/AdvReac Type Severity Reaction Status Date / Time acetaminophen [From Fioricet] AdvReac Nausea Verified 04/27/21 09:40 butalbital [From Fioricet] AdvReac Nausea Verified 04/27/21 09:40 caffeine [From Fioricet] AdvReac Nausea Verified 04/27/21 09:40 bactrim Allergy nauseated Uncoded 04/27/21 09:40 Family History Father Arthritis Diabetes Heart disease Hypertension Kidney disease High cholesterol Mother Diabetes Brother Hypertension High cholesterol Uncle CVA (cerebral vascular accident) Grandmother CVA (cerebral vascular accident) Surgical History History of back surgery History of bilateral salpingectomy History of esophagogastroduodenoscopy (EGD) History of hysterectomy History of loop electrical excision procedure (LEEP) Hx of colonoscopy Social History Smoking Status: Never smoker alcohol intake: current alcohol intake frequency: holidays/special occasions only substance use type: does not use ROS ROS ED Constitutional Constitutional ED: Reports chills and subjective; Denies fever(s) Eyes Eyes: Reports blurry vision; Denies diplopia ENT ENT ED: Reports rhinorrhea; Denies sore throat Cardiovascular Cardiovascular: Reports palpitations and racing heartbeat; Denies chest pain Respiratory/Chest Respiratory/Chest: Denies cough or dyspnea Gastrointestinal Gastrointestinal: Reports nausea; Denies vomiting Genitourinary Genitourinary ED: Denies dysuria or hematuria Musculoskeletal Musculoskeletal: Reports back pain and neck pain Integumentary Denies abscess or rash Neurologic Neurologic: Reports headache(s); Denies weakness Allergic/Immunologic Allergic/Immunologic ED: Denies mouth swelling or urticaria EXAM Physical Exam Const Vital Signs: 04/27/21 09:37 04/27/21 11:05 Temperature 96.1 F L Temperature Source Temporal Pulse Rate 72 Respiratory Rate 18 14 Respiratory Effort Normal Non-Labored Respiratory Pattern Normal Blood Pressure 163/112 H Blood Pressure Mean 129 Pulse Ox 100 Oxygen Delivery Method Room Air Positive well nourished and well developed General Appearance ED: well developed HEENT Reports moist mucous membranes Neck supple Neck Narrative: There is tenderness over the cervical spine and paraspinal muscles. There is no bony crepitance or step-off. There is no edema or ecchymosis. Range of motion was slightly limited in all motions of the cervical spine secondary to pain. Resp normal respiratory effort and clear to auscultation bilaterally Cardio regular rate and regular rhythm Back/Spine Back/Spine Narrative: There is mild tenderness over the upper thoracic spine and paraspinal muscles. There is no bony crepitance or step-off. There is no edema or ecchymosis. Cervical Spine: cervical spine tenderness Cervical Spine Tenderness Details: C4, C5, C6, C7 and T1 Thoracic Spine / Upper Back: thoracic spinal tenderness T1, T2, T3 and T4 and paraspinal muscle tenderness bilateral Neuro oriented x3, CN's II-XII intact bilaterally and no sensory deficits noted Sensorium / Orientation: alert Motor Exam: strength 5/5 throughout Psych mental status grossly normal MDM MDM MDM Narrative Medical decision making narrative: CT scan of the cervical spine was obtained. There are degenerative changes. There is no acute fracture or spondylolisthesis. This was interpreted by the radiologist and reviewed by myself. Patient was given prescription for short course of Percocet and a short course of prednisone. Patient was instructed to follow-up with her primary care physician in 3 to 5 days. Patient understood and was agreeable with the plan. All questions were answered. Radiography Diagnostic Testing: Clinical Impression(s) from Imaging Studies Cervical Spine CT 04/27/21 11:22 IMPRESSION: Multilevel degenerative changes, as described above. Electronically Signed: Sam Mcdonald MD at 12:05 EST , Service support , Discharge Plan Triage Chief Complaint: Other, Pain/Inj ED Provider: Darian Decker Dx/Rx/DC Orders Clinical Impression: Cervical muscle strain Instructions: ED Neck Sprain or Strain Prescriptions: New prednisone 20 MG tablet 60 mg PO DAILY Qty: 15 RF: 0 oxycodone-acetaminophen [oxycodone-acetaminophen] 1 TABLET tablet 1 tab PO Q6H PRN PRN (Reason: Pain) 3 Days Qty: 12 RF: 0 No Action clindamycin phosphate 1 % foam 1 applic TOPICAL QHS PRN (Reason: skin rash) RF: 0 alprazolam 0.5 MG tablet 1 mg PO QHS RF: 0 oxycodone-acetaminophen 1 EACH tablet 1 ea PO Q6H PRN PRN (Reason: Pain) Qty: 30 RF: 0 sumatriptan succinate 50 mg tablet 50 mg PO .X1 PRN RF: 0 fexofenadine [Kelli Allergy] 60 mg Tablet 60 mg PO QWEEK RF: 0 omeprazole 20 mg Capsule,Delayed Release(Dr/Ec) 20 mg PO BID RF: 0 levocetirizine [Xyzal] 5 mg Tablet 5 mg PO TID RF: 0 famotidine RF: 0 Primary Care Provider: Laya Hicks Referrals: Laya Hicks DO [Primary Care Provider] - 3-5 Days Disposition Disposition: Home, Self Care
[2021-04-27 13:23] VITALS: BP 142/88; PULSE 70
== END 2021-04-27 13:27 | disposition home or self-care (01) ==
PROVIDERS: Emergency Provider Emergency Medicine; PCP Family Medicine
DX: S16.1XXA Strain of muscle, fascia and tendon at neck level, initial encounter (principal); R20.2 Paresthesia of skin; X58.XXXA Exposure to other specified factors, initial encounter; Y93.9 Activity, unspecified; Y92.89 Other specified places as the place of occurrence of the external cause; Y99.9 Unspecified external cause status; G43.909 Migraine, unspecified, not intractable, without status migrainosus; K21.9 Gastro-esophageal reflux disease without esophagitis; F41.9 Anxiety disorder, unspecified
CPT/HCPCS: 72125; 99283

== ENCOUNTER 2021-04-30 13:34 | Emergency (ER) | payer BC, SELFPAY ==
[2021-04-30 13:34] VITALS: BP 149/103; PULSE 105; RESP 18; TEMP 36.6; O2SAT 94
[2021-04-30 13:54] VITALS: BP 149/103; PULSE 105; RESP 18; TEMP 36.6; O2SAT 94
--- NOTE | 2021-04-30 14:08 | CT_ITS ---
STUDY: CT LUMBAR SPINE WITHOUT CONTRAST REASON FOR EXAM: Female, 50 years old. Pain RADIATION DOSAGE (If Supplied By Facility): CTDIvol = ( 11.51 ) mGy, DLP = ( 314.46 ) mGycm TECHNIQUE: The patient was scanned in a multi detector CT scanner. High resolution transaxial imaging was performed. Images were obtained from L1 to S1 vertebrae.. Sagittal and coronal images were reconstructed. Individualized dose optimization techniques were used for this CT. COMPARISON: None FINDINGS: There is straightening of the normal lumbar lordosis. There is a levoscoliosis of the lumbar spine. The patient is status post interpedicular and screw fixation and laminectomy at the T12-L3 vertebrae. L1-2: Marked degree of disc space narrowing. No evidence of stenosis. L2-3: Marked degree of disc space narrowing. No evidence of spinal stenosis. There is evidence of intertransverse body bone grafting. L3-4: Marked degree of disc space narrowing. No evidence of spinal stenosis. Facet joint osteoarthritis. Intertransverse body bone grafting. L4-5: Marked degree of disc space narrowing and spondylosis. No evidence of spinal stenosis. L5-S1: Marked degree of disc space narrowing and spondylosis. Facet joint osteoarthritis and hypertrophy. Moderate degree of bilateral neural foraminal stenosis worse on the left side. Atherosclerotic calcification of the abdominal aorta. CT/Spine Lumbar without Contrast IMPRESSION: Multilevel fusion as described with multilevel disc space narrowing. Neural foraminal stenosis at the L5-S1 level bilaterally. Loss of the normal lumbar lordosis. Levoscoliosis. Electronically Signed: Sam Mcdonald MD at 15:36 EST , Service support ,
--- NOTE | 2021-04-30 14:08 | EKG12_ITS ---
Test Reason : PALPS Blood Pressure : / mmHG Vent. Rate : 078 BPM Atrial Rate : 078 BPM P-R Int : 144 ms QRS Dur : 074 ms QT Int : 360 ms P-R-T Axes : 055 047 054 degrees QTc Int : 410 ms Normal sinus rhythm Normal ECG Confirmed by RILEY OLMSTEAD, BRYN ([id number]), pumping station supervisor RODRIGUEZ PATEL ([id number]) on 05/01/2021 10:49:07 AM Referred By: LINA Confirmed By:BRYN LIN MD
--- NOTE | 2021-04-30 14:15 | EDS_ITS ---
HPI History of Present Illness Chief Complaint: General Illness Narrative Narrative: Patient presents with her mother for multiple somatic complaints. She states that one of her main ones is that she has had scoliosis surgery with rods inserted in her back in 1986. She has developed a lump on the left side of her spine which is painful. She feels as if something is pressing on there. Additionally, she has had heart palpitations since she was seen in the emergency department in November. She states that she has constant nausea and vomiting and is unable to eat. She has had extensive GI work-up with endoscopy. She presents because of continued palpitations, epigastric pain and nausea and vomiting, and the lump in her back which is painful. She was seen in the emergency department on Tuesday where she states she had x-rays of her neck taken and was put on oxycodone, but she still feels poorly. She has tried to get into her primary care physician without avail. She also states she has been having urinary frequency. [facility] Medical History Acid reflux Anxiety Arthritis Back problem Cardiology follow-up encounter Dizziness Easy bruising Epigastric pain Gastric reflux History of echocardiogram History of hiatal hernia History of palpitations Kidney stones Migraine headache Nausea Non-smoker Palpitations Vasovagal syncope Wears contact lenses Home Medications oxycodone-acetaminophen 1 tab PO Q6H PRN PRN 3 Days #12 tablet 04/27/21 [Rx Last Taken Unknown] prednisone 60 mg PO DAILY #15 tablet 04/27/21 [Rx Last Taken Unknown] alprazolam 1 mg tablet 1 mg PO DAILY PRN tab 04/28/21 [History Last Taken Unknown] famotidine 20 mg tablet 20 mg PO DAILY 04/28/21 [History Last Taken Unknown] propranolol 10 mg tablet 10 mg PO BID #60 tab 04/28/21 [Rx Last Taken Unknown] sumatriptan succinate 100 mg tablet 100 mg PO .COMPLEX PRN #9 tab 04/28/21 [Rx Last Taken Unknown] Allergy/AdvReac Type Severity Reaction Status Date / Time acetaminophen [From Fioricet] AdvReac Nausea Verified 04/30/21 13:37 butalbital [From Fioricet] AdvReac Nausea Verified 04/30/21 13:37 caffeine [From Fioricet] AdvReac Nausea Verified 04/30/21 13:37 bactrim Allergy nauseated Uncoded 04/30/21 13:37 Family History Father Arthritis Diabetes Heart disease Hypertension Kidney disease High cholesterol Mother Diabetes Brother Hypertension High cholesterol Uncle CVA (cerebral vascular accident) Grandmother CVA (cerebral vascular accident) Aunt CVA (cerebral vascular accident) Surgical History History of back surgery History of bilateral salpingectomy History of esophagogastroduodenoscopy (EGD) History of hysterectomy History of loop electrical excision procedure (LEEP) Hx of colonoscopy Social History Smoking Status: Never smoker Tobacco: How many years used: 24 Electronic Cigarette Use: not used how long ago did patient quit smoking: Quit 2009 second hand exposure: No alcohol intake: current alcohol intake frequency: holidays/special occasions only substance use type: does not use ROS ROS ED ROS Narrative Constitutional: No fever, no chills. HEENT: No sore throat. Positive neck pain. No loss of vision. No rhinorrhea. Cardiovascular: No chest pain. Positive chronic palpitations. No pedal edema. Respiratory: No cough, no shortness of breath. Abdominal: Epigastric abdominal pain. Positive nausea. Positive vomiting. Genitourinary: No dysuria. No hematuria. Musculoskeletal: No myalgias. No arthralgias. Positive low back pain, lump left of spine and lumbar area. Neurologic: No headaches. No dizziness. No lightheadedness. Skin: No rash. No change in color. Psychiatric: No depression. No anxiety. EXAM Physical Exam Narrative Exam Narrative: Afebrile. Vital signs noted. Mildly cachectic. HEENT: Normocephalic. Atraumatic. PERRL, EOMI. Neck soft and supple. No point tenderness or step off. Cardiovascular: Mild tachycardia, with occasional extrasystole. No murmurs, rubs, or gallops appreciated. Respiratory: No tachypnea. Lungs clear to auscultation bilaterally. Gastrointestinal: Abdomen soft, nontender, with normoactive bowel sounds. No rebound or guarding. Neurological: Awake. Alert. Nonfocal, nonlateralizing. Skin: No rash. Normal color. No pallor. Musculoskeletal: No pedal edema. Full range of motion extremities. Palpation of the spine does show protrusion of the skin on the left lumbar area. Const Vital Signs: 04/30/21 13:34 04/30/21 13:54 Temperature 97.8 F 97.8 F Temperature Source Temporal Temporal Pulse Rate 105 H 105 H Respiratory Rate 18 18 Respiratory Pattern Normal Blood Pressure 149/103 H 149/103 H Blood Pressure Mean 118 118 Pulse Ox 94 94 Oxygen Delivery Method Room Air Room Air MDM MDM MDM Narrative Medical decision making narrative: Comprehensive work-up was pursued. Regarding her palpitations, I obtained an EKG which demonstrates normal sinus rhythm at 78 bpm without ectopy or acute ST changes, no significant change from previous in November. Her CBC is grossly normal with a normal white count of 6.2, hemoglobin slightly hemoconcentrated at 15.4 which I think is nonspecific. Normal platelet count. Her electrolyte panel shows no evidence of dehydration. Glucose appropriately elevated at 111 with a normal anion gap. Her LFTs are grossly unremarkable. Lipase is normal at 141. TSH is slightly low at 0.31 which I think is nonspecific. She was told to follow-up with endocrinology regarding this, or her primary care physician. Her urinalysis shows no evidence of ketones or infection. I do not feel antibiotics are indicated. Her high- sensitivity troponin is negative at less than 3. I did obtain a CT of her lumbar spine which shows postsurgical changes and multilevel fusion. I am unsure as to what the protrusion on her low back may be, but in the event that it is hardware, I see no evidence of tenting of the skin with eminent rupture. She was told that she will need to follow-up with an adult orthopedic spine surgeon versus neurosurgery for possible revision of her hardware. She states this is the next step in her plan to feeling better. She has not had surgery on her back since she was 17 years old, almost 33 years ago. At this point in time, I feel she can be discharged safely home with follow-up. She will follow up with her primary care physician and with an orthopedic spine surgeon versus neurosurgery. Disposition is discharged home in stable condition. Lab Data Attestation: I reviewed the patient's lab results. Labs: Laboratory Results - last 24 hr 04/30/21 04/30/21 04/30/21 14:45 14:45 14:51 WBC 6.2 RBC 5.15 Hgb 15.4 H Hct 44.8 MCV 87.0 MCH 29.9 MCHC 34.4 RDW Std Deviation 40.6 RDW Coeff of Agbriel 12.8 Plt Count 315 MPV 9.3 Immature Gran % (Auto) 0.500 Neut % (Auto) 84.3 H Lymph % (Auto) 9.8 L [place] % (Auto) 5.2 Eos % (Auto) 0.0 Baso % (Auto) 0.2 Absolute Neuts (auto) 5.2 Absolute Lymphs (auto) 0.60 L Nucleated RBC % 0 Differential Comment SCANNED Sodium 138 Potassium 4.0 Chloride 106 Carbon Dioxide 30.0 Anion Gap 2 L BUN 12 Creatinine 0.72 Estim Creat Clear Calc 83.00 Est GFR (MDRD) Af Amer 110 Est GFR (MDRD) Non-Af 91 BUN/Creatinine Ratio 16.7 Glucose 111 H Calcium 9.5 Total Bilirubin 0.30 AST 14 L ALT 27 Alkaline Phosphatase 69 Troponin I High Sens < 3 L Total Protein 7.8 Albumin 4.2 Globulin 3.6 Albumin/Globulin Ratio 1.2 Lipase 141 TSH 0.31 L Urine Color Straw Urine Clarity Clear Urine pH 8.0 Ur Specific Mooers 1.010 Urine Protein Negative Urine Glucose (UA) 100 H Urine Ketones Negative Urine Occult Blood Negative Urine Nitrite Negative Urine Bilirubin Negative Urine Urobilinogen Normal Ur Leukocyte Esterase Negative Urine RBC 0 SEEN Urine WBC 0 SEEN Ur Squamous Epith Cells 0 SEEN Urine Bacteria 0 SEEN Urine Mucus 0 SEEN Radiography Diagnostic Testing: Clinical Impression(s) from Imaging Studies Lumbar Spine CT 04/30/21 14:08 IMPRESSION: Multilevel fusion as described with multilevel disc space narrowing. Neural foraminal stenosis at the L5-S1 level bilaterally. Loss of the normal lumbar lordosis. Levoscoliosis. Electronically Signed: Sam Mcdonald MD at 15:36 EST , Service support , Discharge Plan Triage Chief Complaint: General Illness ED Provider: Vishal Shea Dx/Rx/DC Orders Clinical Impression: Palpitations, Malaise, Nausea & vomiting, Back pain, Scoliosis deformity of spine Instructions: ED Back Pain (Acute or Chronic), ED Palpitations Prescriptions: No Action alprazolam 1 mg tablet 1 mg PO DAILY PRN (Reason: anxiety) RF: 0 famotidine 20 mg tablet 20 mg PO DAILY RF: 0 sumatriptan succinate 100 mg tablet 100 mg PO .COMPLEX PRN (Reason: migraine headache) Qty: 9 RF: 3 propranolol 10 mg tablet 10 mg PO BID Qty: 60 RF: 3 prednisone 20 MG tablet 60 mg PO DAILY Qty: 15 RF: 0 oxycodone-acetaminophen [oxycodone-acetaminophen] 1 TABLET tablet 1 tab PO Q6H PRN PRN (Reason: Pain) 3 Days Qty: 12 RF: 0 Primary Care Provider: Laya Hicks Referrals: Laya Hicks DO [Primary Care Provider] - 05/04/21 Disposition Disposition: Home, Self Care
[2021-04-30] MEDS: 0.9% Normal Saline 1,000 ML 1000 ML IV (14:52)
[2021-04-30 14:58] LABS: Bacteria 0 SEEN /hpf (None Seen); Mucous, Urine 0 SEEN /hpf (<or=2+); Red Blood Cells-Urine 0 SEEN /hpf (0-5); Squamous Epithelial Cells - UA 0 SEEN /hpf (5-10); White Blood Cells 0 SEEN /hpf (0-5)
[2021-04-30 14:59] LABS: Absolute Neutrophil Count 5.2 X10^3/uL (2.0-7.7); Basophil# 0.01 X10^3/uL; Basophil% 0.2 % (0-1); Hematocrit 44.8 % (37-47); Hemoglobin 15.4 g/dL (12.0-15.0); Lymphocyte % 9.8 % (19-41); Mean Corp Hgb Conc 34.4 g/dL (32-36); Mean Corpuscular Hgb 29.9 pg (27.0-32.0); Mean Platelet Vol. 9.3 fl (6.2-12.0); Monocyte# 0.32 X10^3/uL; Monocyte% 5.2 % (0-10); NRBC Flagged by Analyzer 0 % (0-5); Neutrophil # 5.19 X10^3/uL (2.7-7.7); Neutrophil % 84.3 % (47-70); POSITIVE DIFFERENTIAL YES; Platelet Count 315 K/mm3 (150-450); RBC Distribution Width CV 12.8 % (11.6-14.6); RBC Distribution Width SD 40.6 fl (35.1-43.9); Red Blood Count 5.15 M/mm3 (4.2-5.4); White Blood Count 6.2 K/mm3 (4.4-11.0)
[2021-04-30 14:59] LABS: Glucose, Dipstick 100 mg/dl (Normal); Ketone-Dipstick Negative (Negative); Leukocyte Esterase-Dipstick Negative /ul (Negative); Nitrite-Dipstick Negative (Negative); Occult Blood-Urine Negative /ul (Negative); Protein-Dipstick Negative (Negative); Urine Bilirubin Dipstick Negative (Negative); Urine Urobilinogen Normal (Normal)
[2021-04-30 15:07] LABS: Differential Indicated SCAN CRITERIA MET
[2021-04-30 15:20] LABS: Color, Urine Straw (Yellow); Urine Clarity Clear (Clear)
[2021-04-30 15:24] LABS: ALB/GLOB Ratio 1.2 RATIO (0.9-2.4); AST(SGOT) 14 U/L (15-37); Alanine Aminotransfer ALT/SGPT 27 U/L (13-56); Albumin, Serum 4.2 g/dL (3.2-5.0); Alkaline Phosphatase 69 U/L (45-117); Anion Gap 2 (5-15); BUN 12 mg/dL (7-18); BUN/Creat Ratio 16.7 RATIO (10-20); Calcium,Total 9.5 mg/dL (8.5-10.1); Chloride 106 mmol/L (98-107); Creatinine, Serum 0.72 mg/dL (0.55-1.02); EST Glomerular Filtration Rate 91 mL/min (>60); Est Glom Filt Rate - Afr Amer 110 mL/min (>60); Globulin 3.6 g/dL (2.2-4.2); Glucose 111 mg/dL (74-106); Lipase 141 U/L (73-393); Protein, Total 7.8 g/dL (6.4-8.2); Sodium Level 138 mmol/L (136-145); Thyroid Stim Hormone (TSH) 0.31 uIU/mL (0.358-3.74); Troponin-I HS < 3 pg/mL (3.0-54.0)
[2021-04-30 16:01] LABS: Differential Comment SCANNED
== END 2021-04-30 16:15 | disposition home or self-care (01) ==
PROVIDERS: Emergency Provider Emergency Medicine; PCP Family Medicine
DX: R00.2 Palpitations (principal); R22.2 Localized swelling, mass and lump, trunk; R11.2 Nausea with vomiting, unspecified; R10.13 Epigastric pain; R35.0 Frequency of micturition; M19.90 Unspecified osteoarthritis, unspecified site; K21.9 Gastro-esophageal reflux disease without esophagitis; F41.9 Anxiety disorder, unspecified; Z79.52 Long term (current) use of systemic steroids; Z79.899 Other long term (current) drug therapy
CPT/HCPCS: 72131; 80053; 81001; 83690; 84443; 84484; 85025; 93005; 96360; 99283; J7030; A4216

== ENCOUNTER → 2021-05-13 05:59 | Outpatient (CLI) | payer BC, SELFPAY ==
--- NOTE | 2021-05-13 06:01 | MRI_ITS ---
EXAM: MR HEAD WITHOUT AND WITH INTRAVENOUS CONTRAST CLINICAL INDICATION: Migraine headaches TECHNIQUE: Multiplanar and multisequence MR images of the brain were obtained without and with intravenous contrast. This report was created using [employer] report generation technology. CONTRAST: DOTAREM 12 ML IV COMPARISON: None. FINDINGS: BRAIN AND EXTRA-AXIAL SPACES: Multiple small subcortical white matter T2 FLAIR hyperintensity foci in both cerebral hemispheres are nonspecific. No mass effects junction. No abnormal enhancing lesions intraaxially and extra-axially. No intra- or extra-axial hemorrhage. No evidence of acute infarct. There is preservation of the cuenca/white matter interface. Posterior fossa structures are unremarkable. Ventricles are appropriate for age. No hydrocephalus. Basal cisterns are patent. SELLA: Unremarkable. Normal sella turcica, pituitary gland, infundibular stalk, optic chiasm and hypothalamus. AUDITORY SYSTEM: Unremarkable. The internal auditory canals are patent. BONES/JOINTS: Unremarkable. No discrete lytic or blastic abnormalities. SINUSES: Unremarkable as visualized. Clear. MASTOID AIR CELLS: Unremarkable as visualized. Clear. ORBITS: Unremarkable as visualized. Both globes, extraocular muscles, optic nerves and retrobulbar fat appear unremarkable. VASCULATURE: Unremarkable as visualized. Normal flow voids in the major intracranial circulation. MRI/Brain W/WO Contrast IMPRESSION: 1. No MRI evidence of intracranial mass, acute ischemic infarct or acute intracranial abnormality. 2. Small nonspecific T2 FLAIR hyperintensity foci in the subcortical white matter of both cerebral hemispheres. Possibilities include migraine-related changes, reversible cerebral vasoconstrictive syndrome, microvascular disease and vasculitis. Electronically Signed: Vishal Simpson MD at 14:52 EST , Service support ,
== END ==
PROVIDERS: PCP Family Medicine; Referring Provider Psychiatry & Neurology Neurology; Visit Provider Psychiatry & Neurology Neurology
DX: G43.109 Migraine with aura, not intractable, without status migrainosus (principal)
CPT/HCPCS: 70553; A9575

== ENCOUNTER 2021-05-23 07:57 | Outpatient (CLI) | payer BC, SELFPAY ==
[2021-05-23 14:32] LABS: Free T3 3.1 pg/mL (2.18-3.98); T4 Total, Thyroxin 11.2 ug/dL (4.8-13.9); Thyroid Stim Hormone (TSH) 0.58 uIU/mL (0.358-3.74)
[2021-05-26 09:08] LABS: Thyroxin Bind Glob (TBG) 18 ug/mL (13-39)
[2021-05-26 17:18] LABS: Anti-Thyroglobulin AB < 1.0 IU/mL (0.0-0.9); Thyroglobulin, Serum Qt. 36.6 ng/mL (1.5-38.5); Thyroid Peroxidase AB < 8 IU/mL (0-34)
== END 2021-05-23 23:59 | disposition short-term general hospital (02) ==
PROVIDERS: PCP Family Medicine; Referring Provider Family Medicine; Visit Provider Family Medicine
DX: R63.4 Abnormal weight loss (principal); R25.1 Tremor, unspecified; E05.90 Thyrotoxicosis, unspecified without thyrotoxic crisis or storm
CPT/HCPCS: 84432; 84436; 84442; 84443; 84481; 86376; 86800

== ENCOUNTER 2021-07-27 15:35 | Outpatient (CLI) | payer BC, SELFPAY | END 2021-07-27 23:59 | disposition home or self-care (01) | LOC: LABSPEC 15:41 | PROVIDERS: PCP Family Medicine; Visit Provider Otolaryngology | DX: J02.9 Acute pharyngitis, unspecified (principal) | CPT/HCPCS: 87070 ==

== ENCOUNTER 2021-11-09 17:00 | Outpatient (RCR) | payer BC, SELFPAY ==
--- NOTE | 2021-09-07 18:23 | HP.PTEVAL_ITS ---
Patient's Visit Information RACHELL ABAD is a 50 year old F referred to Physical Therapy by Dr. Cordell Kumar MD with a diagnosis of CERVICAL SPONDYLOLISTHESIS. Date of Evaluation: 09/07/21 Physical Therapist: Latricia Ray PT, Cert MDT - Visit Plan Frequency: 2-3x /Week Duration: 4-6 Weeks Plan: US, E-STIM WITH MH, STM, POSTURE CORRECTION/STRENGTHENING, INSTRUCTION IN APPROPRIATE BODY MECHANICS AND ACTIVITY MODIFICATIONS. LISA UE ROM, STRETCHING AND STRENGTHENING. 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 Disability: NO. Present symptoms: NECK PAIN. TENSION IN SHOULDER. INTERMITTENT WEAKNESS AND TINGLING LISA UE'S. NO NEW HEADACHES - H/O MIGRAINES. Present since: SEPTEMBER 2020. Pain Scale: Worst - 8/10 Least - 2/10. Currently: 3/10. Commenced as a result of: GOING UP IN WEIGHT AT [employer]. Symptoms at onset: GRINDING IN NECK AND BETWEEN SHLD BLADES. Worse: TRYING TO OVER POSTURIZE, SITTING, WORK, DRIVING - LOOKING IN BLIND SPOTS, TURNING HEAD TOO QUICKLY. Better: STANDING UP, CHIROPRACTOR. Disturbed sleep: YES BUT NOT DUE TO THIS. Previous history/Previous treatment: UNREMARKABLE. This episode: ABOUT 10 - 15 CHIRO VISITS LAST YEAR AND 2 RECENT CHIRO VISITS WITH SOME BENEFIT. PERCOCET. NO NECK SURGERY. NO NECK INJECTIONS. NO NECK PHYSICAL THERAP Y. SAW DR. OH IN MAY 2021 AND IMAGING OF NECK ALONG WITH BACK ORDERED. STARTING SEEING DR. KUMAR IN JULY 2021 AND HAS ONLY SEEN HIM ONE TIME. REPORTS DR. KUMAR DID NOT RECOMMEND SURGERY FOR HER NECK. STATES DR. OH DID NOT RECOMMEND SURGERY ON HER NECK EITHER. Dizziness: YES. Tinnitis: YES. Nausea: YES. Shortness of Breath: NO. Difficulty Swollowing: SOMETIMES. (PATIENT REPORTS HER DOCTORS ARE AWARE OF ALL OF THE ABOVE SX'S). Gait: NORMAL. Accidents: NO. Unexplained weight loss: HAS LOST 22 LBS IN 9 MONTHS - PATIENT REPORTS HER DOCTOR IS AWARE. Imaging: NECK MRI MAY 2021. NECK X-RAYS SAME DAY - JUN 02 2021. PMH/Recent major surgery: RODS IN BACK 1986 FOR SCOLIOSIS. ANXIETY. CURRENTLY HAVING A CONSTANT BURNING IN HER MOUTH THAT SHE FEELS HAS CONTRIBUTED TO HER WEIGHT LOSS BUT STATES THE DOCTORS HAVE NOT BEEN ABLE TO GIVE HER A DIAGNOSIS/CAUSE FOR IT. 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 PATIENT REPORTS ONE OF HER RODS ON THE LEFT IS CURVING AND CAUSING IRRITATION AND IT HAS BEEN LOOKED AT BY AT LEAST 2 SURGEONS. - Objective Sitting Posture/Standing Posture: POOR. FH. RS'S. NO TORTICOLLIS. Active Correction of posture: BETTER TEMPORARILY. Other Observations: INDEP GAIT AND TRANSFERS. Sensory deficit: LISA UE LIGHT TOUCH SENSATION GROSSLY INTACT AND SYMMETRICAL. ROM deficit: LISA UE ROM WFL. Motor deficit: LISA UE'S GROSSLY 5/5 EXCEPT SHLDS 4/5 AND PATIENT DENIES INCRASED PAIN WITH ROM AND STRENGTH TESTING. Dural Signs: NEGATIVE LISA UE'S. Cervical Mvmt Loss: Flex: MOD. Pro: MOD. Ext: MOD. Ret: MOD. RSB: STEVE. LSB: STEVE. R Rot: MOD. L Rot: MOD. Postural strength: POOR. Palpation: INCRASED MUSCLE TONE LISA CERVICAL MUSCULATURE BUT NO ACUTE UPPER THORACIC OR CERVICAL SPINE TENDERNESS. TREATMENT: NEUROMUSCULAR REEDUCATION - RETRAINING OF MVMT AND POSTURE FOR SITTING, LYING AND STANDING ACTIVITIES. - Balance/Special Test Scores Oswestry Neck Score: 15 - Goals Goal 1:: DECREASE C/O NECK AND SHLD PAIN Goal Time Frame: 4-6 Weeks Goal 2:: IMPROVE PERSONAL CARE, LIFTING, SLEEP, WORK, DRIVING AND RECREATIONAL FUNCTION Goal Time Frame: 4-6 Weeks Goal 3:: INSTRUCT IN PROPHYLAXIS Goal Time Frame: 4-6 Weeks - Anticipated Interventions Patient/Client Instruction: Educate patient on: Condition, Plan of Care, Risk Factors For the Purpose of:: To improve self management Therapeutic Exercise to Include: Strength training, Body mechanics, Postural training, Flexibilty training, Neuromotor development, Scapular Strength/Stabilization For the Purpose of:: To decrease pain, To increase ROM, To improve muscle performance and motor function, To increase tolerance to activity/condition/position, To improve ability of physical actions for home/community/work/leisure TENS: Yes IF ES: Yes Cryotherapy (ice pack, ice massage): Yes Thermo therapy (hot pack): Yes Ultrasound (thermal/non thermal): Yes For the Purpose of:: To decrease pain, To improve nutrient delivery to tissue Thank you for the opportunity to evaluate your patient. For Medicare and Medicare HMO plans, please review the plan of care and approve it. It will need to be FAXED BACK to us at [phone] for Medicare purposes. For Medicare only, by signing this I certify the plan of care. Please let me know if there are questions or concerns regarding this plan of care. Physician Signature: Date:
--- NOTE | 2021-11-09 17:17 | HP.PTREVAL ---
Dr. Cordell Caruso MD, It has been my pleasure to treat RACHELL ABAD over the last 15 visits for CERVICAL SPONDYLOLISTHESIS. Please see the progress note below for an update on the physical therapy plan of care! Subjective: PATIENT REPORTS HER PAIN IS BETTER. DOING MH AND EX'S AT HOME AND IT HELPS A LOT. Objective/Function: PATIENT WAS SEEN TODAY FOR RE-ASSESSMENT OF PROGRESS TOWARD THE SET PT GOALS AND THE NEED FOR FURTHER PHYSICAL THERAPY VS READINESS FOR DISCHARGE. SHE HAS MADE GOOD PROGRESS TOWARD ALL PT GOALS AND IS APPROPRIATE FOR DISCHARGE TO [facility]. SHE IS AGREEABLE. UPON EXAM TODAY: LISA UE LIGHT TOUCH SENSATION GROSSLY INTACT AND SYMMETRICAL. ROM deficit: LISA UE ROM WFL. Motor deficit: LISA UE'S GROSSLY 5/5 EXCEPT SHLDS 4/5 AND PATIENT DENIES INCRASED PAIN WITH ROM AND STRENGTH TESTING. Dural Signs: NEGATIVE LISA UE'S. Cervical Mvmt Loss: Flex: MIN. Pro: NIL. Ext: MIN. Ret: MOD. RSB: MOD. LSB: MOD. R Rot: MIN. L Rot: MIN. PATIENT DENIED PAIN WITH ALL TESTING TODAY. Plan Plan: D/C TO [facility]. PATIENT AGREEABLE. Balance/Gait/Functional tests - Balance/Special Test Scores Oswestry Neck Score: 4 Goals Goal 1:: DECREASE C/O NECK AND SHLD PAIN Goal Time Frame: 4-6 Weeks Goal Progress: Goal Met Goal 2:: IMPROVE PERSONAL CARE, LIFTING, SLEEP, WORK, DRIVING AND RECREATIONAL FUNCTION Goal Time Frame: 4-6 Weeks Goal Progress: Goal Met Goal 3:: INSTRUCT IN PROPHYLAXIS Goal Time Frame: 4-6 Weeks Goal Progress: Goal Met Anticipated Interventions Patient/Client Instruction: Educate patient on: Condition, Plan of Care, Risk Factors For the Purpose of:: To improve self management Therapeutic Exercise to Include: Strength training, Body mechanics, Postural training, Flexibilty training, Neuromotor development, Scapular Strength/Stabilization For the Purpose of:: To decrease pain, To increase ROM, To improve muscle performance and motor function, To increase tolerance to activity/condition/position, To improve ability of physical actions for home/community/work/leisure TENS: Yes IF ES: Yes Cryotherapy (ice pack, ice massage): Yes Thermo therapy (hot pack): Yes Ultrasound (thermal/non thermal): Yes For the Purpose of:: To decrease pain, To improve nutrient delivery to tissue Please do not hesitate to contact me at [phone] by phone or if you have questions or concerns regarding this new plan of care! Sincerely, Latricia Ray, PT, Cert MDT
--- NOTE | 2021-11-23 10:18 | HP.PTDCSUM_ITS ---
It has been my pleasure to treat RACHELL ABAD referred by Dr. Cordell Caruso MD, with the diagnosis of CERVICAL SPONDYLOLISTHESIS for a total of 15 visit(s). Discharge Date: Please see the following information for a summary of their discharge status. Subjective: PATIENT REPORTS HER PAIN IS BETTER. DOING MH AND EX'S AT HOME AND IT HELPS A LOT. CErv/ UT's Pain Intensity (Out of 10): 0 % Improvement: 90 Objective/Function: PATIENT WAS SEEN TODAY FOR RE-ASSESSMENT OF PROGRESS TOWARD THE SET PT GOALS AND THE NEED FOR FURTHER PHYSICAL THERAPY VS READINESS FOR DISCHARGE. SHE HAS MADE GOOD PROGRESS TOWARD ALL PT GOALS AND IS APPROPRIATE FOR DISCHARGE TO [facility]. SHE IS AGREEABLE. UPON EXAM TODAY: LISA UE LIGHT TOUCH SENSATION GROSSLY INTACT AND SYMMETRICAL. ROM deficit: LISA UE ROM WFL. Motor deficit: LISA UE'S GROSSLY 5/5 EXCEPT SHLDS 4/5 AND PATIENT DENIES INCRASED PAIN WITH ROM AND STRENGTH TESTING. Dural Signs: NEGATIVE LISA UE'S. Cervical Mvmt Loss: Flex: MIN. Pro: NIL. Ext: MIN. Ret: MOD. RSB: MOD. LSB: MOD. R Rot: MIN. L Rot: MIN. PATIENT DENIED PAIN WITH ALL TESTING TODAY. Goal 1:: DECREASE C/O NECK AND SHLD PAIN Goal Progress: Goal Met Goal 2:: IMPROVE PERSONAL CARE, LIFTING, SLEEP, WORK, DRIVING AND RECREATIONAL FUNCTION Goal Progress: Goal Met Goal 3:: INSTRUCT IN PROPHYLAXIS Goal Progress: Goal Met Plan: D/C TO [facility]. PATIENT AGREEABLE. If there are questions or concerns regarding this patient's physical therapy, please feel free to call me at [phone]. Thank you for the referral of this patient. Sincerely, Latricia Ray, PT, Cert MDT Balance/Gait/Functional tests - Balance/Special Test Scores Oswestry Neck Score: 4
== END 2021-11-09 19:00 | disposition home or self-care (01) ==
LOC: PT 17:00
PROVIDERS: PCP Family Medicine; Referring Provider Orthopaedic Surgery Orthopaedic Surgery of the Spine; Visit Provider Orthopaedic Surgery Orthopaedic Surgery of the Spine
DX: M43.12 Spondylolisthesis, cervical region (principal)
CPT/HCPCS: 97014; 97035; 97110; 97112; 97124; 97140; 97162; 97164; G0283

== ENCOUNTER → 2021-11-24 | Outpatient (CLI) | payer BC, SELFPAY ==
[2021-11-24 18:05] LABS: Erythrocyte Sedimentation Rate 8 mm/hr (0-30)
[2021-11-24 18:06] LABS: Absolute Lymphocyte Count 2.44 X10^3/uL (0.83-4.51); Absolute Neutrophil Count 4.6 X10^3/uL (2.0-7.7); Basophil# 0.02 X10^3/uL; Basophil% 0.3 % (0-1); Eosinophil# 0.03 X10^3/uL; Eosinophils% 0.4 % (0-5); Hematocrit 41.9 % (37-47); Hemoglobin 14.2 g/dL (12.0-15.0); Lymphocyte # 2.44 X10^3/ul (0.83-4.51); Lymphocyte % 32.4 % (19-41); Mean Corp Hgb Conc 33.9 g/dL (32-36); Mean Corpuscular Hgb 30.5 pg (27.0-32.0); Mean Corpuscular Volume 89.9 fL (81-99); Mean Platelet Vol. 9.8 fl (6.2-12.0); Monocyte# 0.47 X10^3/uL; Monocyte% 6.2 % (0-10); NRBC Flagged by Analyzer 0 % (0-5); Neutrophil # 4.56 X10^3/uL (2.7-7.7); Neutrophil % 60.4 % (47-70); Platelet Count 305 K/mm3 (150-450); RBC Distribution Width CV 13.2 % (11.6-14.6); RBC Distribution Width SD 42.9 fl (35.1-43.9); Red Blood Count 4.66 M/mm3 (4.2-5.4); White Blood Count 7.5 K/mm3 (4.4-11.0)
[2021-11-24 19:02] LABS: CRP < 2.90 mg/L (0.0-3.0); Cholesterol 196 mg/dL (200); High Density Lipoprotein 80 mg/dL; Triglycerides 58 mg/dL; Very Low Density Lipoprotein 12 mg/dL (5-40)
[2021-11-24 19:24] LABS: Vitamin B12 879 pg/mL (211-911)
[2021-11-26 15:55] LABS: ANTINUCLEAR ANTIBODIES DIRECT Negative (Negative)
[2021-12-03 14:32] LABS: Vitamin B1, Thiamine 178.9 nmol/L (66.5-200.0)
== END | disposition home or self-care (01) ==
LOC: MTLAB 15:13
PROVIDERS: PCP Family Medicine; Referring Provider Psychiatry & Neurology Neurology; Visit Provider Psychiatry & Neurology Neurology
DX: I67.9 Cerebrovascular disease, unspecified (principal); M79.2 Neuralgia and neuritis, unspecified
CPT/HCPCS: 36415; 80061; 81241; 82607; 82746; 84425; 85025; 85652; 86038; 86140; 86225; 86235

== ENCOUNTER → 2021-12-09 | Outpatient (CLI) | payer BC, SELFPAY ==
--- NOTE | 2021-12-09 17:11 | CT_ITS ---
STUDY: CT SOFT TISSUE NECK WITH CONTRAST REASON FOR EXAM: Female, 51 years old. Dysphagia RADIATION DOSAGE (If Supplied By Facility): CTDIvol = ( 9.59 ) mGy, DLP = ( 299.62 ) mGycm TECHNIQUE: The patient was scanned in a multi-detector CT scanner. High resolution transaxial imaging was performed following intravenous administration of IV 75mL Isovue-370. Sagittal and coronal images were reconstructed. Individualized dose optimization techniques were used for this CT. COMPARISON: None. FINDINGS: Normal bilateral parotid glands. 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 Normal bilateral parapharyngeal spaces. Normal bilateral carotid spaces. Normal bilateral sublingual and submandibular glands and spaces. Normal visualized nasopharynx. Normal retropharyngeal space. Normal perivertebral space. Normal visualized bilateral faucial tonsils. The visualized tongue, tongue base and oropharynx are normal. The visualized cervical lymph nodes (levels I-) are within normal size limits, and maintain normal morphology. There is no demonstrated solid or cystic mass lesion. There is no abnormal contrast enhancement. Normal epiglottis, bilateral vallecula and hypopharynx. The pre-epiglottic and paraglottic adipose spaces are normal. Normal visualized bilateral piriform sinuses, aryepiglottic folds, vocal cords, and arytenoid-cricoid articulations. Normal subglottic trachea. There is a 5.3 cm hypodensity in the midpole of the left lobe of the thyroid gland. A 5 mm density is also seen along the posterior midportion of the right lobe of the thyroid. Normal visualized pulmonary apices. Normal visualized paranasal sinuses. Normal visualized cervical spine. CT/Soft Tissue Neck WITH Contrast IMPRESSION: Normal enhanced CT examination of the soft tissues of the neck. Electronically Signed: Sam Mcdonald MD at 11:59 EDT ,
== END | disposition home or self-care (01) ==
PROVIDERS: PCP Family Medicine; Visit Provider Psychiatry & Neurology Neurology
DX: R13.10 Dysphagia, unspecified (principal)
CPT/HCPCS: 70491; Q9967

== ENCOUNTER → 2022-01-19 | Outpatient (CLI) | payer BC, SELFPAY ==
--- NOTE | 2022-01-19 14:06 | BI_ITS ---
MAMMOGRAPHY - BILATERAL SCREENING REASON FOR EXAM: Female, 51 years old. Routine annual screening examination. PERTINENT HISTORY: Non-contributory. History of prior left stereotactic breast biopsy. TECHNIQUE: Digital bilateral breast grady (3D mammographic acquisition) in the CC and MLO projections. 2-D mediolateral oblique (MLO) and craniocaudad (CC) views of both breasts were obtained. CAD: Full Field Digital Mammography with Computer Added Detection was performed. COMPARISON: Comparison is made with prior study of 10/31/2019. FINDINGS: Breast Composition: The breasts are heterogeneously dense, which may obscure small masses. There are no dominant masses or suspicious calcifications. A tissue clip marker is once again seen in the upper slightly lateral aspect of the left breast. No other significant abnormalities are identified. There has been no significant change since the prior study. BI/SCRN MAMM (CAD)W/GRADY BILAT IMPRESSION: Stable bilateral screening mammogram. Yearly follow-up mammogram recommended. (A) ASSESSMENT CATEGORY: BIRADS Category 2: Benign. A letter regarding these results will be sent to the patient by the facility within 30 days. Approximately 10% of breast cancers are not detected by mammography. A normal mammogram should not delay biopsy of a clinically suspicious abnormality. [id number] Electronically Signed: Sam Mcdonald MD at 9:36 EDT ,
--- NOTE | 2022-01-19 14:06 | US_ITS ---
STUDY: ULTRASOUND OF THE FEMALE PELVIS - COMPLETE REASON FOR EXAM: Female, 51 years old. Right ovarian enlargement, pelvic pain LMP: Patient is status post hysterectomy. TECHNIQUE: TECHNICAL QUALITY: Adequate. COMPARISON: None. FINDINGS: The patient is status post hysterectomy. The right ovary is visualized. The right ovary measures 2.8 cm x 2.7 cm x 2 cm. There is a 2.2 cm x 2.2 cm x 1.9 cm cyst. There is no visualized right adnexal mass or complex lesion. There is normal arterial and normal venous vascularity. The left ovary is visualized. The left ovary measures 2.4 cm x 2 cm x 0.9 cm. There is no left ovarian cyst or ovarian mass. There is no visualized left adnexal mass or complex lesion. There is normal arterial and normal venous vascularity. There is no fluid in the cul-de-sac. The pre void volume of the bladder was 590 ml. US/Transvaginal Non- IMPRESSION: 2.2 cm x 2.2 cm x 1.9 cm cyst in the right ovary. Electronically Signed: Sam Mcdonald MD at 15:17 EDT ,
--- NOTE | 2022-01-19 14:06 | US_ITS ---
STUDY: ULTRASOUND OF THE FEMALE PELVIS - COMPLETE REASON FOR EXAM: Female, 51 years old. Right ovarian enlargement, pelvic pain LMP: Patient is status post hysterectomy. TECHNIQUE: TECHNICAL QUALITY: Adequate. COMPARISON: None. FINDINGS: The patient is status post hysterectomy. The right ovary is visualized. The right ovary measures 2.8 cm x 2.7 cm x 2 cm. There is a 2.2 cm x 2.2 cm x 1.9 cm cyst. There is no visualized right adnexal mass or complex lesion. There is normal arterial and normal venous vascularity. The left ovary is visualized. The left ovary measures 2.4 cm x 2 cm x 0.9 cm. There is no left ovarian cyst or ovarian mass. There is no visualized left adnexal mass or complex lesion. There is normal arterial and normal venous vascularity. There is no fluid in the cul-de-sac. The pre void volume of the bladder was 590 ml. US/Pelvic (Non ) IMPRESSION: 2.2 cm x 2.2 cm x 1.9 cm cyst in the right ovary. Electronically Signed: Sam Mcdonald MD at 15:17 EDT ,
== END | disposition home or self-care (01) ==
PROVIDERS: PCP Family Medicine; Referring Provider Obstetrics & Gynecology; Visit Provider Obstetrics & Gynecology
DX: Z12.31 Encounter for screening mammogram for malignant neoplasm of breast (principal); N83.201 Unspecified ovarian cyst, right side; R10.2 Pelvic and perineal pain
CPT/HCPCS: 76830; 76856; 77063; 77067

== ENCOUNTER → 2022-01-27 | Outpatient (CLI) | payer BC, SELFPAY ==
--- NOTE | 2022-01-27 17:07 | US_ITS ---
STUDY: THYROID ULTRASOUND REASON FOR EXAM: Female, 51 years old. nodule TECHNIQUE: Ultrasound evaluation of the thyroid was performed with real-time and static cuenca-scale imaging. COMPARISON: None. FINDINGS: RIGHT LOBE: The right lobe of the thyroid gland measures 5.3 cm. There is a homogeneous echotexture. Multiple nodules. The largest measures 5 x 4 mm. LEFT LOBE: The left lobe of the thyroid gland measures 4.9 cm. There is a homogeneous echotexture. 2 nodules. Mid nodule measures 9 x 8 mm. Intranodular measures 4 x 3 mm. ISTHMUS: The isthmus measures 1.5 mm. US/Thyroid IMPRESSION: There are RIGHT nodules. This nodule is cystic or nearly completely cystic. TI-RADS points: 0. TI-RADS category: TR1. This nodule is benign and no FNA or follow-up is necessary. There are left nodules. This nodule is mixed cystic and solid, anechoic, [id number], smoothly marginated and contains no echogenic foci. TI-RADS points: 1. TI-RADS category: TR1. This nodule is benign and no FNA or follow-up is necessary. Electronically Signed: Lele Contreras MD at 20:36 EDT ,
== END | disposition home or self-care (01) ==
PROVIDERS: PCP Family Medicine; Visit Provider Obstetrics & Gynecology
DX: E04.1 Nontoxic single thyroid nodule (principal)
CPT/HCPCS: 76536

== ENCOUNTER → 2022-04-06 | Outpatient (CLI) | payer BC, SELFPAY ==
[2022-04-09 16:08] LABS: SJOGREN'S Anti-SS-A test < 0.2 AI (0.0-0.9)
[2022-04-09 19:37] LABS: SJOGREN'S Anti-SS-B test < 0.2 AI (0.0-0.9)
== END | disposition home or self-care (01) ==
LOC: MTLAB 16:08
PROVIDERS: PCP Family Medicine; Referring Provider Psychiatry & Neurology Neurology; Visit Provider Psychiatry & Neurology Neurology
DX: K14.6 Glossodynia (principal)
CPT/HCPCS: 36415; 86235

== ENCOUNTER → 2022-10-28 | Outpatient (CLI) | payer BC, SELFPAY | END | disposition home or self-care (01) | LOC: LABSPEC 15:11 | PROVIDERS: PCP Family Medicine; Referring Provider Obstetrics & Gynecology; Visit Provider Obstetrics & Gynecology | DX: R10.2 Pelvic and perineal pain (principal) | CPT/HCPCS: 87086 ==

== ENCOUNTER → 2022-11-05 | Outpatient (CLI) | payer BC, SELFPAY ==
--- NOTE | 2022-11-05 14:59 | US_ITS ---
PROCEDURE: ULTRASOUND OF THE FEMALE PELVIS - COMPLETE REASON FOR EXAM: Female, 52 years old. Pelvic pain prior hysterectomy TECHNIQUE: Transabdominal and Transvaginal TECHNICAL QUALITY: Adequate. COMPARISON: Renal ultrasound dated November 05, 2022. Pelvic ultrasound dated January 15, 2022 FINDINGS: Prior hysterectomy. Multiple peristalsing bowel loops are present in the [id number]. Neither ovary is discernible from the surrounding bowel loops. The right ovary is non-visualized. There is no visualized right adnexal mass or complex lesion. The left ovary is non-visualized. There is no visualized left adnexal mass or complex lesion. Normal color vascular flow and Doppler signal is demonstrated in both ovaries. There is no fluid in the cul-de-sac. US/Pelvic (Non ) IMPRESSION: 1. No demonstrated abnormality. Electronically Signed: Ady Patel MD at 13:14 EDT ,
--- NOTE | 2022-11-05 14:59 | US_ITS ---
STUDY: RENAL ULTRASOUND - COMPLETE REASON FOR EXAM: Female, 52 years old. LLQ pain -- rule out kidney stone TECHNIQUE: Ultrasound evaluation of the kidneys was performed with real-time and static londono-scale imaging. COMPARISON: CT of abdomen and pelvis dated March 17, 2020. Pelvic ultrasound exam dated June 07, 2022 FINDINGS: RIGHT KIDNEY: Normal location of the right kidney, which is normal in size. The right kidney measures 10.8 x 6.2 x 4.2 cm. There is a normal cortex of the right kidney. The renal cortex measures 1.4 cm. There is no right renal mass or cyst. There are no right renal calculi. There is mild hydronephrosis of the right kidney. DISTAL RIGHT URETER: There is non-visualization of the distal right ureter. There is no demonstrated right ureterovesical junction calculus. There is a visualized right ureteral jet. LEFT KIDNEY: Normal location of the left kidney, which is normal in size. The left kidney measures 10.2 x 4.9 x 5.2 cm. There is a normal cortex of the left kidney. The renal cortex measures 1.2 cm. There is no left renal mass or cyst. There are no left renal calculi. There is mild hydronephrosis of the left kidney. DISTAL LEFT URETER: There is non-visualization of the distal left ureter. There is no demonstrated left ureterovesical junction calculus. There is a visualized left ureteral jet. There is chronic prominence of the pelvicalyceal system of both kidneys with no demonstrated hydronephrosis or echogenic stones or distal obstruction. BLADDER: Bladder images are included on the pelvic ultrasound study. The distended urinary bladder has a volume of 386 ml. There is no demonstrated mass within the urinary bladder. There are no demonstrated bladder calculi. US/Kidney and Bladder IMPRESSION: 1. Mild bilateral hydronephrosis Electronically Signed: Ady Patel MD at 13:05 EDT ,
== END | disposition home or self-care (01) ==
LOC: US 14:59
PROVIDERS: PCP Family Medicine; Referring Provider Obstetrics & Gynecology; Visit Provider Obstetrics & Gynecology
DX: R10.2 Pelvic and perineal pain (principal); R10.32 Left lower quadrant pain
CPT/HCPCS: 76770; 76830; 76856

== ENCOUNTER → 2022-11-12 | Outpatient (CLI) | payer BC, SELFPAY ==
[2022-11-12 17:43] LABS: Anion Gap 4 (5-15); BUN 20 mg/dL (7-18); BUN/Creat Ratio 18.2 RATIO (10-20); Calcium,Total 9.4 mg/dL (8.5-10.1); Chloride 103 mmol/L (98-107); EST Glomerular Filtration Rate 55 mL/min (>60); Est Glom Filt Rate - Afr Amer 67 mL/min (>60); Glucose 95 mg/dL (74-106); Potassium 4.2 mmol/L (3.5-5.1); Sodium Level 135 mmol/L (136-145)
== END | disposition home or self-care (01) ==
LOC: MTLAB 15:52
PROVIDERS: PCP Family Medicine; Referring Provider Urology; Visit Provider Urology
DX: N20.0 Calculus of kidney (principal)
CPT/HCPCS: 36415; 80048

== ENCOUNTER → 2022-11-30 | Outpatient (CLI) | payer BC, SELFPAY ==
--- NOTE | 2022-11-30 17:00 | CT_ITS ---
EXAM: CT ABDOMEN AND PELVIS WITHOUT AND WITH INTRAVENOUS CONTRAST CLINICAL INDICATION: UNSPECIFIED HYDRONEPHROSIS TECHNIQUE: Helically acquired images were obtained of the abdomen and pelvis without and with intravenous contrast. This CT exam was performed using one or more of the following dose reduction techniques: automated exposure control, adjustment of the mA and/or kV according to patient size, and/or use of iterative reconstruction technique. CONTRAST: IV 100mL [id number] COMPARISON: 03/17/2020 FINDINGS: LOWER THORAX: Unremarkable. Lung bases are clear. No cardiomegaly. No significant pericardial effusion. ABDOMEN: LIVER: Unremarkable. Homogeneous. No focal mass. GALLBLADDER AND BILE DUCTS: Unremarkable. No calcified gallstones. No gallbladder distention or wall edema. No intra- or extrahepatic biliary ductal dilation. PANCREAS: Unremarkable. No focal cystic or solid mass. SPLEEN: Unremarkable. Normal size without focal cystic or solid mass. ADRENALS: Unremarkable. No nodules. KIDNEYS AND URETERS: Delayed images show normal excretion of contrast from both kidneys. Normal renal size and position. No hydronephrosis. STOMACH AND BOWEL: Unremarkable. No stomach or bowel distention. No focal inflammatory change. PELVIS: APPENDIX: No evidence of acute appendicitis. BLADDER: Unremarkable. REPRODUCTIVE: The patient status post hysterectomy. ABDOMEN and PELVIS: INTRAPERITONEAL SPACE: Unremarkable. No ascites or other fluid collection. No free air. BONES/JOINTS: There is extensive hardware in the thoracic spine was created between or artifact. No suspicious lytic or blastic abnormality. SOFT TISSUES: Unremarkable. No discrete abdominal or pelvic wall hernia. VASCULATURE: Unremarkable. Abdominal aorta is non-dilated. LYMPH NODES: Unremarkable. No enlarged lymph nodes. CT/CT Abd/Pelvis W/WO Contrast IMPRESSION: No acute findings in the abdomen or pelvis. There has been no change from the reference exam. Electronically Signed: Richy Reyes MD at 0:04 EDT ,
== END | disposition home or self-care (01) ==
LOC: CT 16:33
PROVIDERS: PCP Family Medicine; Referring Provider Urology; Visit Provider Urology
DX: N13.30 Unspecified hydronephrosis (principal); N20.0 Calculus of kidney
CPT/HCPCS: 74178; Q9967

== ENCOUNTER → 2023-02-01 | Outpatient (CLI) | payer BC, SELFPAY ==
--- NOTE | 2023-02-01 14:34 | BI_ITS ---
MAMMOGRAPHY - BILATERAL SCREENING REASON FOR EXAM: Female, 52 years old. Routine annual screening examination. PERTINENT HISTORY: Non-contributory. History of prior left stereotactic breast biopsy. TECHNIQUE: Digital bilateral breast grady (3D mammographic acquisition) in the CC and MLO projections. 2-D mediolateral oblique (MLO) and craniocaudad (CC) views of both breasts were obtained. CAD: Full Field Digital Mammography with Computer Added Detection was performed. COMPARISON: Comparison is made with prior study January 19, 2022 and October 31, 2019. FINDINGS: Breast Composition: The breasts are heterogeneously dense, which may obscure small masses. There are no dominant masses or suspicious calcifications. A stereotactic clip marker is once again seen in the upper lateral aspect of the left breast. No other significant abnormalities are identified. There has been no significant change since the prior study. BI/SCRN MAMM (CAD)W/GRADY BILAT IMPRESSION: Stable bilateral screening mammogram. Yearly follow-up mammogram recommended. (A) ASSESSMENT CATEGORY: BIRADS Category 2: Benign. A letter regarding these results will be sent to the patient by the facility within 30 days. Approximately 10% of breast cancers are not detected by mammography. A normal mammogram should not delay biopsy of a clinically suspicious abnormality. [id number] Electronically Signed: Sam Mcdonald MD at 15:36 EDT ,
== END | disposition home or self-care (01) ==
LOC: OPBI 14:33
PROVIDERS: PCP Family Medicine
DX: Z12.31 Encounter for screening mammogram for malignant neoplasm of breast (principal)
CPT/HCPCS: 77063; 77067

== ENCOUNTER → 2024-02-03 | Outpatient (CLI) | payer BC, SELFPAY ==
--- NOTE | 2024-02-03 14:44 | BI_ITS ---
MAMMOGRAPHY - BILATERAL SCREENING REASON FOR EXAM: Female, 53 years old. Routine annual screening examination. PERTINENT HISTORY: Non-contributory. History of prior left stereotactic breast biopsy. TECHNIQUE: Digital bilateral breast grady (3D mammographic acquisition) in the CC and MLO projections. 2-D mediolateral oblique (MLO) and craniocaudad (CC) views of both breasts were obtained. CAD: Full Field Digital Mammography with Computer Added Detection was performed. COMPARISON: Comparison is made with prior study February 01, 2023 January 19, 2022. FINDINGS: Breast Composition: The breasts are heterogeneously dense, which may obscure small masses. There are no dominant masses or suspicious calcifications. A stereotactic clip tissue marker is once again seen in the upper lateral aspect of the left breast No other significant abnormalities are identified. There has been no significant change since the prior study. BI/SCRN MAMM (CAD)W/GRADY BILAT IMPRESSION: Stable bilateral screening mammogram. Yearly follow-up mammogram recommended. (A) ASSESSMENT CATEGORY: BIRADS Category 2: Benign. A letter regarding these results will be sent to the patient by the facility within 30 days. Approximately 10% of breast cancers are not detected by mammography. A normal mammogram should not delay biopsy of a clinically suspicious abnormality. [id number] Electronically Signed: Sam Mcdonald MD at 9:25 EDT ,
== END | disposition home or self-care (01) ==
LOC: OPBI 14:43
PROVIDERS: PCP Family Medicine
DX: Z12.31 Encounter for screening mammogram for malignant neoplasm of breast (principal)
CPT/HCPCS: 77063; 77067

== ENCOUNTER → 2025-03-08 | Outpatient (CLI) | payer BC, SELFPAY | END | disposition home or self-care (01) | LOC: OPBI 15:33 | PROVIDERS: PCP Family Medicine; Referring Provider Nurse Practitioner; Visit Provider Nurse Practitioner | DX: Z12.31 Encounter for screening mammogram for malignant neoplasm of breast (principal) | CPT/HCPCS: 77063; 77067 ==